=== PATIENT | male | born 1945 | race Caucasian/White ===

== ENCOUNTER 2017-03-20 08:38 | Emergency (ER) | payer MEDICARE, OTHER ==
[~2017-03-20] VITALS: Ht 190.5 cm; Wt 98.3 kg
[~2017-03-20 08:38] MED LIST: ACYC1CAP16 PO; AMLO5TAB22 PO; ASPI81TA45 PO; CLON.2 PO; IBUP600T26 PO; METO50TA PO; OMEP20.62 PO; PERC5TAB12 PO; ZOCO40TA PO; ZOFR4TAB3 SL
[2017-03-20] MEDS ORDERED: IOHEXOL 350 MG/ML 10 ML VIAL (for RAD DIAG) IVCONTRAST ONE (08:39)
[2017-03-20 08:50] VITALS: BP 136/84; PULSE 62; RESP 16; TEMP 98.1; O2SAT 97
[2017-03-20] MEDS ORDERED: OMEP20TA PO (08:50)
[2017-03-20] MEDS ORDERED: METO50TA PO (08:50)
[2017-03-20] MEDS ORDERED: AMLO5TAB2 PO (08:50)
[2017-03-20] MEDS ORDERED: SIMV40TA PO (08:50)
[2017-03-20] MEDS ORDERED: HYDR25TA5 PO (08:50)
[2017-03-20] MEDS ORDERED: MELO-1 PO (08:50)
[2017-03-20] MEDS ORDERED: CLON0.1T PO (08:50)
--- NOTE | 2017-03-20 09:06 | PD ---
HPI Chief Complaint: Abdominal Pain Time Seen by Provider: 08:56 Travel History International Travel<30 days: No Contact w/Intl Traveler<30days: No Traveled to known affect area: No History of Present Illness HPI This patient complains of abdominal pain. Location is right lower quadrant. Duration is 24 hours. Severity is moderate. No vomiting or diarrhea or fever. No alleviating factors. He denies abdominal surgeries. PFSH Past Medical History High Cholesterol: Yes Diminished Hearing: Yes GERD: Yes Hypertension: Yes Kidney Stones: Yes Tetanus Vaccination: < 5 Years Past Surgical History Other Surgery: Yes (hemorrhoid) Social History Alcohol Use: Yes (SOCIALLY) Tobacco Use: No Substance Use: No Allergies-Medications (Allergen,Severity, Reaction): Coded Allergies: No Known Allergies (Unverified , 03/20/17) Reported Meds & Prescriptions Reported Meds & Active Scripts Active Reported Omeprazole 20 Mg Tab 20 Mg PO DAILY Amlodipine (Amlodipine Besylate) 5 Mg Tab 5 Mg PO DAILY Clonidine (Clonidine HCl) 0.1 Mg Tab 0.2 Mg PO HS Metoprolol Tartrate 50 Mg Tab 50 Mg PO BID Simvastatin 40 Mg Tab 40 Mg PO HS Hydrochlorothiazide 25 Mg Tab 25 Mg PO DAILY Meloxicam 15 Mg Tab 15 Mg PO DAILY Review of Systems General / Constitutional: No: Fever Eyes: No: Visual changes HENT: No: Headaches Cardiovascular: No: Chest Pain or Discomfort Respiratory: No: Shortness of Breath Gastrointestinal: Positive: Abdominal Pain Genitourinary: No: Dysuria Musculoskeletal: No: Pain Skin: No Rash Neurologic: No: Weakness Psychiatric: No: Depression Endocrine: No: Polydipsia Hematologic/Lymphatic: No: Easy Bruising Physical Exam Narrative GENERAL: Well-nourished, well-developed patient in no apparent distress. SKIN: Focused skin assessment reveals no rash and nodules. Skin is Warm and dry. HEAD: Atraumatic. Normocephalic. EYES: Pupils equal and round. No scleral icterus. No injection or drainage. ENT: No nasal bleeding or discharge. Mucous membranes pink and moist. NECK: Trachea midline. No JVD. CARDIOVASCULAR: Regular rate and rhythm. No murmur appreciated. RESPIRATORY: No accessory muscle use. Clear to auscultation. Breath sounds equal bilaterally. GASTROINTESTINAL: Abdomen soft, right lower quadrant is tender without rebound or guarding, nondistended. Hepatic and splenic margins not palpable. No inguinal hernia noted MUSCULOSKELETAL: No obvious deformities. No clubbing. No cyanosis. No edema. NEUROLOGICAL: Awake and alert. No obvious cranial nerve deficits. Motor grossly within normal limits. Normal speech. PSYCHIATRIC: Appropriate mood and affect; insight and judgment normal. Data Data Last Documented VS Vital Signs Date Time Temp Pulse Resp B/P (MAP) Pulse Ox O2 Delivery O2 Flow Rate FiO2 03/20/17 09:16 94 03/20/17 09:00 16 03/20/17 08:50 98.1 62 136/84 (101) Orders Orders Urinalysis - C+S If Indicated (03/20/17 08:56) Basic Metabolic Panel (Bmp) (03/20/17 09:02) Complete Blood Count With Diff (03/20/17 09:02) Prothrombin Time / Inr (Pt) (03/20/17 09:02) Act Partial Throm Time (Ptt) (03/20/17 09:02) Ct Abd/Pel W Iv Contrast(Rout) (03/20/17 09:02) Iv Access Insert/Monitor (03/20/17 09:02) Ecg Monitoring (03/20/17 09:02) Oximetry (03/20/17 09:02) Sodium Chloride 0.9% Flush (Ns Flush) (03/20/17 09:15) Iohexol 350 Inj (Omnipaque 350 Inj) (03/20/17 08:39) Labs Laboratory Tests Test 03/20/17 08:50 03/20/17 09:10 Urine Collection Type VOIDED Urine Color YELLOW Urine Turbidity CLEAR Urine pH 6.5 Urine Specific [place] 1.017 Urine Protein NEG mg/dL Urine Glucose (UA) NEG mg/dL Urine Ketones NEG mg/dL Urine Occult Blood NEG Urine Nitrite NEG Urine Bilirubin NEG Urine Leukocyte Esterase TRACE Urine WBC 3-5 /hpf Urine Squamous Epithelial Cells 0-2 /hpf Urine Mucus FEW /lpf Microscopic Urinalysis Comment CULT NOT INDICATED White Blood Count 6.9 TH/MM3 Red Blood Count 4.51 MIL/MM3 Hemoglobin 14.4 GM/DL Hematocrit 42.4 % Mean Corpuscular Volume 94.1 FL Mean Corpuscular Hemoglobin 31.9 PG Mean Corpuscular Hemoglobin Concent 33.9 % Red Cell Distribution Width 12.1 % Platelet Count 241 TH/MM3 Mean Platelet Volume 8.4 FL Neutrophils (%) (Auto) 67.5 % Lymphocytes (%) (Auto) 17.0 % Monocytes (%) (Auto) 12.7 % Eosinophils (%) (Auto) 2.5 % Basophils (%) (Auto) 0.3 % Neutrophils # (Auto) 4.6 TH/MM3 Lymphocytes # (Auto) 1.2 TH/MM3 Monocytes # (Auto) 0.9 TH/MM3 Eosinophils # (Auto) 0.2 TH/MM3 Basophils # (Auto) 0.0 TH/MM3 CBC Comment DIFF FINAL Differential Comment Prothrombin Time 10.8 SEC Prothromb Time International Ratio 1.0 RATIO Activated Partial Thromboplast Time 26.7 SEC Blood Urea Nitrogen 18 MG/DL Creatinine 1.20 MG/DL Random Glucose 121 MG/DL Calcium Level 8.4 MG/DL Sodium Level 137 MEQ/L Potassium Level 3.3 MEQ/L Chloride Level 99 MEQ/L Carbon Dioxide Level 33.6 MEQ/L Anion Gap 4 MEQ/L Estimat Glomerular Filtration Rate 60 ML/MIN MDM Medical Decision Making Medical Screen Exam Complete: Yes Emergency Medical Condition: Yes Medical Record Reviewed: Yes Differential Diagnosis Appendicitis, colitis, ileus, hernia Narrative Course I have reviewed the patient's electronic medical record. Patient has history of multiple kidney stones and has a chronic right sided stone in his kidney IV placed CBC is normal metabolic profile shows normal renal function Coagulation studies are normal Urinalysis is clean CT of abdomen and pelvis with IV contrast shows a normal appendix. There are some nonobstructive stones that he knew about these are chronic and incidental. No emergent findings to require hospitalization or surgical evaluation. He does have some mild thickening of bowel loops but no inflammatory changes or obstruction. I wrote him some medication for pain and nausea to use if needed Stable for outpatient follow-up. He has a primary care appointment on Monday , 2 days from now Diagnosis Primary Impression: Abdominal pain Qualified Codes: R10.31 - Right lower quadrant pain Additional Instructions: The patient was advised to follow up with their physician and return if they worsen. The patient was warned about potential sedation for the medications they will receive on prescription. Med/Other Pt SpecificInfo: Prescription(s) given Scripts Ondansetron (Zofran) 4 Mg Tab 4 MG PO Q6HR Y for NAUSEA OR VOMITING, #12 TAB 0 Refills Prov: Adan Benítez MD 03/20/17 Tramadol (Tramadol) 50 Mg Tab 50 MG PO Q6H Y for PAIN, #20 TAB 0 Refills Prov: Adan Benítez MD 03/20/17 Disposition: 01 DISCHARGE HOME Condition: Stable Adan Benítez MD Mar 20, 2017 09:06
[2017-03-20 09:13] LABS: BLOOD, URINE NEG (NEG); GLUCOSE,URINE NEG (NEG); KETONE, URINE NEG (NEG); NITRITE,URINE NEG (NEG); PH, URINE 6.5 (5.0-8.5)
[2017-03-20] MEDS ORDERED: SODIUM CHLORIDE 0.9% FLUSH 10 ML FLUSH IV FLUSH PRN (09:15)
[2017-03-20 09:16] VITALS: O2SAT 94
[2017-03-20 09:27] LABS: AUTOMATED NEUTROPHIL # 4.6 TH/MM3 (1.8-7.7); BASOPHIL % 0.3 % (0.0-2.0); EOSINOPHIL # 0.2 TH/MM3 (0-0.4); EOSINOPHIL % 2.5 % (0.0-4.0); HEMATOCRIT 42.4 % (39.0-51.0); HEMO FLAGS DIFF FINAL; LYMPHOCYTE # 1.2 TH/MM3 (1.0-4.8); MEAN CELL VOLUME 94.1 FL (80.0-100.0); MEAN CORPUSCULAR HEMOGLOBIN 31.9 PG (27.0-34.0); MEAN CORPUSCULAR HGB CONC 33.9 % (32.0-36.0); MONO % 12.7 % (0.0-8.0); NEUT % 67.5 % (16.0-70.0); PLATELET COUNT 241 TH/MM3 (150-450); RED BLOOD COUNT 4.51 MIL/MM3 (4.50-5.90); RED CELL DISTRIBUTION WIDTH 12.1 % (11.6-17.2); WHITE BLOOD COUNT 6.9 TH/MM3 (4.0-11.0)
[2017-03-20 09:44] LABS: APTT (PATIENT) 26.7 SEC (24.3-30.1); PROTHROMBIN TIME - PATIENT 10.8 SEC (9.8-11.6)
[2017-03-20 09:46] LABS: METHOD OF COLLECTION VOIDED; URINE COLOR YELLOW (YELLW/STRAW)
[2017-03-20 09:49] LABS: COMMENT (UR) CULT NOT INDICATED; CULTURE IF INDICATED CULT NOT INDICATED; MUCUS URINE FEW /lpf (OCC); SQUAMOUS EPITHELIAL CELL URINE 0-2 /hpf (0-5)
[2017-03-20 10:14] LABS: BICARBONATE 33.6 MEQ/L (21.0-32.0); POTASSIUM 3.3 MEQ/L (3.5-5.1)
--- NOTE | 2017-03-20 10:56 | RADRPT ---
EXAM DATE/TIME: 03/20/2017 10:31 [facility] COMPARISON: No previous studies available for comparison. INDICATIONS : Right lower quadrant pain. Evaluate for appendicitis. IV CONTRAST: 90 cc Omnipaque 350 (iohexol) IV ORAL CONTRAST: No oral contrast ingested. RADIATION DOSE: 18.72 CTDIvol (mGy) MEDICAL HISTORY : Hypertension. Hypercholesterolemia. Gastroesophageal reflux disease. SURGICAL HISTORY : Orthopedic surgery. ENCOUNTER: Initial ACUITY: 2 days PAIN SCALE: 6/10 LOCATION: Right lower quadrant TECHNIQUE: Volumetric scanning of the abdomen and pelvis was performed. Using automated exposure control and ad justment of the mA and/or kV according to patient size, radiation dose was kept as low as reasonably achievable to obtain optimal diagnostic quality images. DICOM format image data is available electro nically for review and comparison. FINDINGS: LOWER LUNGS: The visualized lower lungs are clear. LIVER: Decreased attenuation without lesion. There is no dilation of the biliary tree. No calcified gallst ones. Benign-appearing hepatic low densities. SPLEEN: Normal size without lesion. PANCREAS: Within normal limits. KIDNEYS: Normal in size and shape. There is no mass, stone or hydronephrosis. Bilateral parapelvic renal cyst . Nonobstructing 3 mm calculus lower pole left kidney. Multiple calculi upper pole right kidney measu ring 3-8 mm. No ureteral calculi. ADRENAL GLANDS: Within normal limits. VASCULAR: There is no aortic aneurysm. BOWEL/MESENTERY: There is mild wall thickening involving some small bowel loops in the lower abdomen. Diverticulosis o f the colon. Trace pelvic free fluid. Normal appendix.. There is no free intraperitoneal air or flui d. ABDOMINAL WALL: Within normal limits. RETROPERITONEUM: There is no lymphadenopathy. BLADDER: No wall thickening or mass. REPRODUCTIVE: Within normal limits. INGUINAL: There is no lymphadenopathy or hernia. MUSCULOSKELETAL: Within normal limits for patient age. CONCLUSION: 1. Bilateral nonobstructing renal calculi more numerous in the right kidney. 2. Wall thickening involving some small bowel loops in the lower abdomen without inflammatory changes or obstruction. 3. Diverticulosis of the sigmoid colon without definite diverticulitis. 4. Trace pelvic free fluid. 5. Mild hepatic steatosis and hepatic low densities, likely benign. Sergey Santana MD on March 20, 2017 at 10:49 Board Certified Radiologist. This report was verified electronically.
[2017-03-20] MEDS ORDERED: TRAM50TA PO (11:19)
[2017-03-20] MEDS ORDERED: ZOFR4TAB PO (11:19)
[2017-03-20 11:22] VITALS: BP 134/75
== END 2017-03-20 11:37 | disposition home or self-care (01) ==
LOC: PHED 08:38
DX: R10.31 Right lower quadrant pain (principal); I10 Essential (primary) hypertension; Z87.442 Personal history of urinary calculi
CPT/HCPCS: 74177; 80048; 81001; 85025; 85610; 85730; 99285; Q9967

== ENCOUNTER 2017-05-21 12:09 | Emergency (ER) | payer OTHER ==
[~2017-05-21] VITALS: Ht 190.5 cm; Wt 106.0 kg
[~2017-05-21 12:09] MED LIST changes: -ACYC1CAP16 PO; +AMLO5TAB2 PO; -AMLO5TAB22 PO; -ASPI81TA45 PO; -CLON.2 PO; +CLON0.1T PO; +HYDR25TA5 PO; -IBUP600T26 PO; +MELO-1 PO; -OMEP20.62 PO; +OMEP20TA PO; -PERC5TAB12 PO; +SIMV40TA PO; +TRAM50TA PO; -ZOCO40TA PO; +ZOFR4TAB PO; -ZOFR4TAB3 SL
[2017-05-21 12:12] VITALS: BP 152/73; PULSE 68; RESP 18; TEMP 98.4; O2SAT 97
[2017-05-21] MEDS ORDERED: SODIUM CHLOR 0.9% 1000 ML INJ 1,000 ML IV SCH (12:40)
[2017-05-21] MEDS ORDERED: MORPHINE SULFATE 4 MG/ML INJ IV PUSH ONE (12:45)
[2017-05-21] MEDS ORDERED: SODIUM CHLORIDE 0.9% FLUSH 10 ML FLUSH IV FLUSH PRN (12:45)
--- NOTE | 2017-05-21 12:47 | PD ---
HPI Chief Complaint: Abdominal Pain Time Seen by Provider: 12:29 Travel History International Travel<30 days: No Contact w/Intl Traveler<30days: No Traveled to known affect area: No History of Present Illness HPI This is a 71-year-old male who presents to the emergency department with abdominal discomfort, constant for 4 days, moderate severity in the lower abdomen feeling like it wraps around all the way to his back, aching. He denies any associated fevers, chills, diarrhea or vomiting. He does say for the first 2 days he had some dysuria and urinary frequency. He says it feels similar to 35 years ago when he was diagnosed with a kidney infection. He has no history of abdominal surgeries. PFSH Past Medical History Cardiovascular Problems: Yes (AFIB) High Cholesterol: Yes Diminished Hearing: Yes GERD: Yes Hypertension: Yes Kidney Stones: Yes Past Surgical History Other Surgery: Yes (hemorrhoid) Social History Alcohol Use: Yes (SOCIALLY) Tobacco Use: No Substance Use: No Allergies-Medications (Allergen,Severity, Reaction): Coded Allergies: No Known Allergies (Unverified , 05/21/17) Reported Meds & Prescriptions Reported Meds & Active Scripts Active Reported Omeprazole 20 Mg Tab 20 Mg PO DAILY Amlodipine (Amlodipine Besylate) 5 Mg Tab 5 Mg PO DAILY Clonidine (Clonidine HCl) 0.1 Mg Tab 0.2 Mg PO HS Metoprolol Tartrate 50 Mg Tab 50 Mg PO BID Simvastatin 40 Mg Tab 40 Mg PO HS Hydrochlorothiazide 25 Mg Tab 25 Mg PO DAILY Meloxicam 15 Mg Tab 15 Mg PO DAILY Review of Systems Except as stated in HPI: all other systems reviewed are Neg Physical Exam Narrative GENERAL:Well appearing, no acute distress SKIN: Focused skin assessment warm and dry. HEAD: Atraumatic. Normocephalic. EYES: Pupils equal and round. No injection or drainage. ENT: Moist mucous membranes NECK: Trachea midline. CARDIOVASCULAR: Regular rate and rhythm. No murmur appreciated. RESPIRATORY: Clear to auscultation. Breath sounds equal bilaterally. GASTROINTESTINAL: Abdomen soft, tender to palpation in the lower abdomen diffusely with guarding. MUSCULOSKELETAL: No obvious deformities. NEUROLOGICAL: Awake and alert. No obvious cranial nerve deficits. Moving all extremities. PSYCHIATRIC: Appropriate mood and affect; insight and judgment normal. Data Data Last Documented VS Vital Signs Date Time Temp Pulse Resp B/P (MAP) Pulse Ox O2 Delivery O2 Flow Rate FiO2 10/22/17 14:15 71 20 168/95 (119) 94 05/21/17 12:12 98.4 Orders Orders Complete Blood Count With Diff (05/21/17 12:40) Comprehensive Metabolic Panel (05/21/17 12:40) Lipase (05/21/17 12:40) Lactic Acid (05/21/17 12:40) Urinalysis - C+S If Indicated (05/21/17 12:40) Ct Abd/Pel W Iv Contrast(Rout) (05/21/17 12:40) Iv Access Insert/Monitor (05/21/17 12:40) Ecg Monitoring (05/21/17 12:40) Oximetry (05/21/17 12:40) Morphine Inj (Morphine Inj) (05/21/17 12:45) Sodium Chlor 0.9% 1000 Ml Inj (Ns 1000 M (05/21/17 12:40) Sodium Chloride 0.9% Flush (Ns Flush) (05/21/17 12:45) Potassium Chloride Powder (Kcl Powder) (05/21/17 13:45) Iohexol 350 Inj (Omnipaque 350 Inj) (05/21/17 13:47) Labs Laboratory Tests Test 05/21/17 12:50 05/21/17 13:10 White Blood Count 6.3 TH/MM3 Red Blood Count 4.66 MIL/MM3 Hemoglobin 14.7 GM/DL Hematocrit 43.8 % Mean Corpuscular Volume 94.0 FL Mean Corpuscular Hemoglobin 31.6 PG Mean Corpuscular Hemoglobin Concent 33.7 % Red Cell Distribution Width 12.6 % Platelet Count 238 TH/MM3 Mean Platelet Volume 8.3 FL Neutrophils (%) (Auto) 68.9 % Lymphocytes (%) (Auto) 17.1 % Monocytes (%) (Auto) 10.8 % Eosinophils (%) (Auto) 2.8 % Basophils (%) (Auto) 0.4 % Neutrophils # (Auto) 4.3 TH/MM3 Lymphocytes # (Auto) 1.1 TH/MM3 Monocytes # (Auto) 0.7 TH/MM3 Eosinophils # (Auto) 0.2 TH/MM3 Basophils # (Auto) 0.0 TH/MM3 CBC Comment DIFF FINAL Differential Comment Blood Urea Nitrogen 20 MG/DL Creatinine 1.20 MG/DL Random Glucose 137 MG/DL Total Protein 7.0 GM/DL Albumin 3.7 GM/DL Calcium Level 9.0 MG/DL Alkaline Phosphatase 64 U/L Aspartate Amino Transf (AST/SGOT) 16 U/L Alanine Aminotransferase (ALT/SGPT) 41 U/L Total Bilirubin 0.6 MG/DL Sodium Level 138 MEQ/L Potassium Level 3.1 MEQ/L Chloride Level 100 MEQ/L Carbon Dioxide Level 33.6 MEQ/L Anion Gap 4 MEQ/L Estimat Glomerular Filtration Rate 60 ML/MIN Lactic Acid Level 1.6 mmol/L Lipase 95 U/L Urine Collection Type CLEAN CATCH Urine Color YELLOW Urine Turbidity CLEAR Urine pH 7.0 Urine Specific [place] 1.010 Urine Protein NEG mg/dL Urine Glucose (UA) NEG mg/dL Urine Ketones NEG mg/dL Urine Occult Blood NEG Urine Nitrite NEG Urine Bilirubin NEG Urine Leukocyte Esterase NEG Urine RBC 0-3 /hpf Urine WBC 0-2 /hpf Urine Squamous Epithelial Cells 0-5 /hpf Microscopic Urinalysis Comment CULT NOT INDICATED Urine Collection Time 13:10 [facility] Medical Decision Making Medical Screen Exam Complete: Yes Emergency Medical Condition: Yes Interpretation(s) afebrile, no tachycardia, hypertension no leukocytosis mild hypokalemia lactic acid 1.6 lipase 95 Urinalysis is negative for infection Last 24 hours Impressions Abdomen/Pelvis CT 05/21/17 1240 Signed Impressions: Service Date/Time: Sunday, May 21, 2017 13:42 - CONCLUSION: 1. No acute abnormality. 2. Hepatic steatosis. 3. Bilateral nonobstructing renal calculi. 4. Bilateral renal cysts including peripelvic cysts. Charlie Dumont Jr., MD Differential Diagnosis Colitis, urinary tract infection, pyelonephritis, appendicitis, nephrolithiasis Narrative Course This is a 71-year-old male who presents to the emergency department with 4 days of lower abdominal pain. He is quite tender on exam. He is placed in a monitor and an IV was established. Labs are all reassuring including a normal lactic acid. CT abdomen and pelvis demonstrates no acute pathology. I'm not sure what's causing the patient's abdominal pain. We had along conversation and I asked him to try to expedite his colonoscopy they think this is the next step in his evaluation. Patient did seem frustrated and I had to explain to him the limitations of the emergency department. He has a follow-up with his primary doctor tomorrow morning. Diagnosis Primary Impression: Lower abdominal pain Patient Instructions: General Instructions Additional Instructions: If you develop severe or worsening abdominal pain, fever>100.4, persistent vomiting or inability to eat or drink return to the emergency department immediately. Follow up with your primary care physician in 1-2 days for a check-up. Med/Other Pt SpecificInfo: Prescription(s) given Scripts Dicyclomine (Bentyl) 10 Mg Cap 10 MG PO TID Y for Bowel Management, #15 CAP 0 Refills Prov: Ruma Edmond MD 05/21/17 Disposition: 01 DISCHARGE HOME Condition: Stable Ruma Edmond MD May 21, 2017 12:47
[2017-05-21 12:53] VITALS: O2SAT 96
[2017-05-21 12:59] VITALS: BP 145/87; PULSE 62; RESP 20; O2SAT 94
[2017-05-21 13:02] LABS: AUTOMATED NEUTROPHIL # 4.3 TH/MM3 (1.8-7.7); BASOPHIL % 0.4 % (0.0-2.0); EOSINOPHIL # 0.2 TH/MM3 (0-0.4); EOSINOPHIL % 2.8 % (0.0-4.0); HEMATOCRIT 43.8 % (39.0-51.0); HEMO FLAGS DIFF FINAL; LYMPH % 17.1 % (9.0-44.0); LYMPHOCYTE # 1.1 TH/MM3 (1.0-4.8); MEAN CORPUSCULAR HEMOGLOBIN 31.6 PG (27.0-34.0); MEAN CORPUSCULAR HGB CONC 33.7 % (32.0-36.0); MONO % 10.8 % (0.0-8.0); NEUT % 68.9 % (16.0-70.0); PLATELET COUNT 238 TH/MM3 (150-450); RED BLOOD COUNT 4.66 MIL/MM3 (4.50-5.90); RED CELL DISTRIBUTION WIDTH 12.6 % (11.6-17.2); WHITE BLOOD COUNT 6.3 TH/MM3 (4.0-11.0)
[2017-05-21 13:10] LABS: CHLORIDE 100 MEQ/L (98-107); POTASSIUM 3.1 MEQ/L (3.5-5.1); SODIUM (NA) 138 MEQ/L (136-145)
[2017-05-21 13:14] LABS: ANION GAP 4 MEQ/L (5-15); BICARBONATE 33.6 MEQ/L (21.0-32.0); BLOOD UREA NITROGEN 20 MG/DL (7-18)
[2017-05-21 13:17] LABS: ALT (GPT) 41 U/L (12-78); AST (GOT) 16 U/L (15-37); GLOMERULAR FILTRATION RATE 60 ML/MIN (>89)
[2017-05-21 13:19] LABS: TOTAL BILIRUBIN ADULT 0.6 MG/DL (0.2-1.0)
[2017-05-21 13:20] LABS: ALKALINE PHOSPHATASE 64 U/L (45-117)
[2017-05-21 13:22] LABS: BLOOD, URINE NEG (NEG); GLUCOSE,URINE NEG (NEG); KETONE, URINE NEG (NEG); NITRITE,URINE NEG (NEG)
[2017-05-21 13:31] LABS: METHOD OF COLLECTION CLEAN CATCH
[2017-05-21 13:32] LABS: COMMENT (UR) CULT NOT INDICATED; CULTURE IF INDICATED CULT NOT INDICATED; RBC, URINE 0-3 /hpf (0-3); SQUAMOUS EPITHELIAL CELL URINE 0-5 /hpf (0-5); URINE COLOR YELLOW (YELLW/STRAW); WBC, URINE 0-2 /hpf (0-5)
[2017-05-21] MEDS ORDERED: POTASSIUM CHLORIDE 20 MEQ PWD PACKET PO ONE (13:45)
[2017-05-21] MEDS ORDERED: IOHEXOL 350 MG/ML 10 ML VIAL (for RAD DIAG) IVCONTRAST ONE (13:47)
--- NOTE | 2017-05-21 14:04 | RADRPT ---
EXAM DATE/TIME: 05/21/2017 13:42 [facility] COMPARISON: CT ABDOMEN & PELVIS W CONTRAST, March 20, 2017, 10:31. INDICATIONS : Diffuse abdominal pain radiating to back, with painful urination. IV CONTRAST: 95 cc Omnipaque 350 (iohexol) IV ORAL CONTRAST: No oral contrast ingested. RADIATION DOSE: 18.28 CTDIvol (mGy) MEDICAL HISTORY : Hypertension. Gastroesophageal reflux disease. Renal calculi. SURGICAL HISTORY : Orthopedic surgery. ENCOUNTER: Initial ACUITY: 3 days PAIN SCALE: 6/10 LOCATION: Bilateral abdomen TECHNIQUE: Volumetric scanning of the abdomen and pelvis was performed. Using automated exposure control and ad justment of the mA and/or kV according to patient size, radiation dose was kept as low as reasonably achievable to obtain optimal diagnostic quality images. DICOM format image data is available electro nically for review and comparison. FINDINGS: LOWER LUNGS: The visualized lower lungs are clear. LIVER: Homogeneous density. There is a 1.5 cm cyst within the left lobe. This is stable. Hounsfield units ar e patent. The liver is diffusely low in attenuation. There is no dilation of the biliary tree. No c alcified gallstones. SPLEEN: Normal size without lesion. Multiple granulomatous calcifications. PANCREAS: Within normal limits. KIDNEYS: Bilateral peripelvic and cortical renal cysts. There are bilateral renal calculi. This is more abunda nt on the right. There is a multilobulated stone occupying the upper pole. Renal pelvis is without st ones. A 3 mm stone seen involving the lower pole of the left kidney. No hydronephrosis or hydroureter . No ureteral stones. ADRENAL GLANDS: Within normal limits. VASCULAR: There is no aortic aneurysm. BOWEL/MESENTERY: The stomach, small bowel, and colon demonstrate no acute abnormality. There is no free intraperitone al air or fluid. ABDOMINAL WALL: Within normal limits. RETROPERITONEUM: There is no lymphadenopathy. BLADDER: No wall thickening or mass. REPRODUCTIVE: Within normal limits. INGUINAL: There is no lymphadenopathy or hernia. MUSCULOSKELETAL: Within normal limits for patient age. CONCLUSION: 1. No acute abnormality. 2. Hepatic steatosis. 3. Bilateral nonobstructing renal calculi. 4. Bilateral renal cysts including peripelvic cysts. Charlie Dumont Jr., MD on May 21, 2017 at 13:59 Board Certified Radiologist. This report was verified electronically.
[2017-05-21 14:15] VITALS: BP 168/95; PULSE 71; RESP 20; O2SAT 94
[2017-05-21] MEDS ORDERED: DICY10 PO (14:28)
== END 2017-05-21 14:39 | disposition home or self-care (01) ==
LOC: PHED 12:09
DX: R10.30 Lower abdominal pain, unspecified (principal)
CPT/HCPCS: 74177; 80053; 81001; 83605; 83690; 85025; 96361; 96374; 99285; J2270; J7030; Q9967

== ENCOUNTER 2017-08-17 13:36 | Observation (INO) | payer OTHER ==
[~2017-08-17] VITALS: Ht 190.5 cm; Wt 99.9 kg
[2017-08-17] VITALS (7 sets, daily range): BP systolic 112–138; BP diastolic 68–89; PULSE 44–58; RESP 12–18; TEMP 96.7–99; O2SAT 93–98
[~2017-08-17 13:36] MED LIST changes: +DICY10 PO; -MELO-1 PO; +MELO15TA20 PO; -OMEP20TA PO; +OMEP20TA93 PO; -TRAM50TA PO; -ZOFR4TAB PO
--- NOTE | 2017-08-17 14:07 | PD ---
HPI Chief Complaint: Chest Pain Time Seen by Provider: 13:45 Travel History International Travel<30 days: No Contact w/Intl Traveler<30days: No Traveled to known affect area: No History of Present Illness HPI This 72-year-old male having some slight left-sided chest pain since this morning. He has a history of atrial fibrillation 4 in the past. He does see a vessel operator on a regular basis. He has had 2 cardiac caths in the past the last murmurs about 10 years ago. He has currently on Toprol on clonidine. He says he was not monitoring his heart at home in a slow irregular in he thought he was not back in atrial fibrillation. He has been having a left lateral chest pain which has been present since around 945. He says he feels a little bit unsteady when he walks. There has not been any recent change in his medication. He is on Toprol 50 mg twice a day PFSH Past Medical History Cardiovascular Problems: Yes High Cholesterol: Yes Diminished Hearing: Yes GERD: Yes Hypertension: Yes Kidney Stones: Yes Influenza Vaccination: Yes Past Surgical History Other Surgery: Yes (hemorrhoid) Social History Alcohol Use: Yes (SOCIALLY) Tobacco Use: No Substance Use: No Allergies-Medications (Allergen,Severity, Reaction): Coded Allergies: No Known Allergies (Unverified Adverse Reaction, Unknown, 08/17/17) Reported Meds & Prescriptions Reported Meds & Active Scripts Active Reported Omeprazole 20 Mg Tab 20 Mg PO DAILY Amlodipine (Amlodipine Besylate) 5 Mg Tab 5 Mg PO DAILY Clonidine (Clonidine HCl) 0.1 Mg Tab 0.1 Mg PO HS Metoprolol Tartrate 50 Mg Tab 50 Mg PO BID Simvastatin 40 Mg Tab 40 Mg PO HS Hydrochlorothiazide 25 Mg Tab 25 Mg PO DAILY Meloxicam 15 Mg Tab 15 Mg PO DAILY Physical Exam Narrative GENERAL: Well-developed male. Heart rate as about 50 SKIN: Focused skin assessment warm/dry. HEAD: Atraumatic. Normocephalic. EYES: Pupils equal and round. No scleral icterus. No injection or drainage. ENT: No nasal bleeding or discharge. Mucous membranes pink and moist. NECK: Trachea midline. No JVD. CARDIOVASCULAR: Irregular rate and rhythm. No murmur appreciated. RESPIRATORY: No accessory muscle use. Clear to auscultation. Breath sounds equal bilaterally. GASTROINTESTINAL: Abdomen soft, non-tender, nondistended. Hepatic and splenic margins not palpable. MUSCULOSKELETAL: No obvious deformities. No clubbing. No cyanosis. No edema. NEUROLOGICAL: Awake and alert. No obvious cranial nerve deficits. Motor grossly within normal limits. Normal speech. PSYCHIATRIC: Appropriate mood and affect; insight and judgment normal. Data Data Last Documented VS Vital Signs Date Time Temp Pulse Resp B/P (MAP) Pulse Ox O2 Delivery O2 Flow Rate FiO2 08/17/17 14:31 44 18 115/75 (88) 112/68 (83) 08/17/17 14:10 98 Room Air 08/17/17 13:39 97.6 Orders Orders Electrocardiogram (08/17/17 14:05) Basic Metabolic Panel (Bmp) (08/17/17 14:05) Complete Blood Count With Diff (08/17/17 14:05) Magnesium (Mg) (08/17/17 14:05) Prothrombin Time / Inr (Pt) (08/17/17 14:05) Act Partial Throm Time (Ptt) (08/17/17 14:05) Troponin I (08/17/17 14:05) Chest, Single Ap (08/17/17 14:05) Ecg Monitoring (08/17/17 14:05) Bilateral Bp Monitoring (08/17/17 14:05) Iv Access Insert/Monitor (08/17/17 14:05) Oximetry (08/17/17 14:05) Oxygen Administration (08/17/17 14:05) Sodium Chloride 0.9% Flush (Ns Flush) (08/17/17 14:15) Potassium Chloride (Kcl) (08/17/17 15:00) Labs Laboratory Tests Test 08/17/17 14:12 White Blood Count 5.9 TH/MM3 Red Blood Count 4.60 MIL/MM3 Hemoglobin 13.8 GM/DL Hematocrit 43.2 % Mean Corpuscular Volume 93.8 FL Mean Corpuscular Hemoglobin 30.1 PG Mean Corpuscular Hemoglobin Concent 32.1 % Red Cell Distribution Width 12.8 % Platelet Count 245 TH/MM3 Mean Platelet Volume 8.2 FL Neutrophils (%) (Auto) 63.7 % Lymphocytes (%) (Auto) 20.5 % Monocytes (%) (Auto) 11.9 % Eosinophils (%) (Auto) 3.2 % Basophils (%) (Auto) 0.7 % Neutrophils # (Auto) 3.8 TH/MM3 Lymphocytes # (Auto) 1.2 TH/MM3 Monocytes # (Auto) 0.7 TH/MM3 Eosinophils # (Auto) 0.2 TH/MM3 Basophils # (Auto) 0.0 TH/MM3 CBC Comment DIFF FINAL Differential Comment Prothrombin Time 10.7 SEC Prothromb Time International Ratio 1.1 RATIO Activated Partial Thromboplast Time 25.1 SEC Blood Urea Nitrogen 17 MG/DL Creatinine 1.10 MG/DL Random Glucose 115 MG/DL Calcium Level 8.8 MG/DL Magnesium Level 2.1 MG/DL Sodium Level 138 MEQ/L Potassium Level 3.4 MEQ/L Chloride Level 101 MEQ/L Carbon Dioxide Level 32.2 MEQ/L Anion Gap 5 MEQ/L Estimat Glomerular Filtration Rate 66 ML/MIN Troponin I LESS THAN 0.02 NG/ML MDM Medical Decision Making Medical Screen Exam Complete: Yes Emergency Medical Condition: Yes Medical Record Reviewed: Yes Differential Diagnosis Differential includes coronary artery disease, dysrhythmia, electrolyte imbalance Narrative Course EKG shows atrial fibrillation at a rate of 50. There are prominent U waves. Troponins normal. His potassium as 3.4. I discussed the case with his vessel operator Dr. Elise. He recommends that we initiate Eliquis 5 mg twice a day. Decrease metoprolol to 25 mg twice daily Diagnosis Primary Impression: Chest pain Qualified Codes: R07.9 - Chest pain, unspecified Additional Impression: Atrial fibrillation Admitting Information Admitting Physician Requests: Observation Bakari Dow MD Aug 17, 2017 14:07
[2017-08-17] MEDS ORDERED: SODIUM CHLORIDE 0.9% FLUSH 10 ML FLUSH IVF PRN (14:15)
[2017-08-17 14:20] LABS: AUTOMATED NEUTROPHIL # 3.8 TH/MM3 (1.8-7.7); BASOPHIL % 0.7 % (0.0-2.0); EOSINOPHIL # 0.2 TH/MM3 (0-0.4); EOSINOPHIL % 3.2 % (0.0-4.0); HEMATOCRIT 43.2 % (39.0-51.0); HEMOGLOBIN 13.8 GM/DL (13.0-17.0); LYMPH % 20.5 % (9.0-44.0); LYMPHOCYTE # 1.2 TH/MM3 (1.0-4.8); MEAN CELL VOLUME 93.8 FL (80.0-100.0); MEAN CORPUSCULAR HEMOGLOBIN 30.1 PG (27.0-34.0); MEAN CORPUSCULAR HGB CONC 32.1 % (32.0-36.0); MEAN PLATELET VOLUME 8.2 FL (7.0-11.0); MONO % 11.9 % (0.0-8.0); MONOCYTE # 0.7 TH/MM3 (0-0.9); NEUT % 63.7 % (16.0-70.0); PLATELET COUNT 245 TH/MM3 (150-450); RED CELL DISTRIBUTION WIDTH 12.8 % (11.6-17.2); WHITE BLOOD COUNT 5.9 TH/MM3 (4.0-11.0)
[2017-08-17 14:29] LABS: CHLORIDE 101 MEQ/L (98-107); SODIUM (NA) 138 MEQ/L (136-145)
[2017-08-17 14:32] LABS: BICARBONATE 32.2 MEQ/L (21.0-32.0); CALCIUM 8.8 MG/DL (8.5-10.1); GLUCOSE,RANDOM 115 MG/DL (74-106); MAGNESIUM 2.1 MG/DL (1.5-2.5)
[2017-08-17 14:33] LABS: BLOOD UREA NITROGEN 17 MG/DL (7-18)
[2017-08-17 14:34] LABS: INTERNATIONAL NORMALIZED RATIO 1.1 RATIO; PROTHROMBIN TIME - PATIENT 10.7 SEC (9.8-11.6)
[2017-08-17 14:36] LABS: GLOMERULAR FILTRATION RATE 66 ML/MIN (>89)
--- NOTE | 2017-08-17 14:39 | RADRPT ---
EXAM DATE/TIME: 08/17/2017 14:19 [facility] COMPARISON: No previous studies available for comparison. INDICATIONS : Chest pain since this morning. MEDICAL HISTORY : Hypertension. Hypercholesterolemia. Gastroesophageal reflux disease. SURGICAL HISTORY : None. ENCOUNTER: Initial ACUITY: 1 day PAIN SCORE: 2/10 LOCATION: Bilateral chest FINDINGS: A single view of the chest demonstrates the lungs to be symmetrically aerated without evidence of mas s, infiltrate or effusion. The cardiomediastinal contours are unremarkable. Osseous structures are intact. CONCLUSION: Normal examination. Shawn Cotton MD on August 17, 2017 at 14:36 Board Certified Radiologist. This report was verified electronically.
[2017-08-17 14:41] LABS: TROPONIN I LESS THAN 0.02 NG/ML (0.02-0.05)
[2017-08-17] MEDS ORDERED: ASPIRIN 325 MG TAB PO ONE (15:00)
[2017-08-17] MEDS ORDERED: POTASSIUM CHLORIDE 20 MEQ CONTROLLED RELEASE TAB PO ONE (15:00)
[2017-08-17] MEDS ORDERED: APIXABAN 5 MG TABLET PO ONE (15:15)
[2017-08-17] MEDS ORDERED: NALOXONE HCL 0.4 MG/ML AMP IV PUSH PRN (15:15)
[2017-08-17] MEDS ORDERED: ACETAMINOPHEN 325 MG TAB PO PRN (15:15)
[2017-08-17] MEDS ORDERED: SODIUM CHLORIDE 0.9% FLUSH 10 ML FLUSH IV FLUSH PRN (15:15)
--- NOTE | 2017-08-17 16:12 | HHI.HP ---
[facility] Primary Care Physician Brenden Vaz MD Admission Diagnosis ATRIAL FIBRILLATION, BRADYCARDIA, CHEST PAIN Diagnoses: Chief Complaint: left side chest pain Travel History International Travel<30 Days: No Contact w/Intl Traveler <30 Da: No Traveled to Known Affected Are: No History of Present Illness This is a 72 year old male with paroxysmal afib for 8 years. HE has felt poorly the last few days and today developed left side chest pain for a few hours. His pain was severe but without nausea or diaphoresis. He has come to the er for further eval. HE is in slow AFIB on telemetry and it is persistent. His chest pain has resolved spontaneously. His boat carpenter mechanic was notified and he has been recommended to be observed overnight. Review of Systems Constitutional: DENIES: Diaphoretic episodes, Fatigue, Fever, Weight gain, Weight loss, Chills, Dizziness, Change in appetite, Night Sweats Endocrine: DENIES: Heat/cold intolerance, Polydipsia, Polyuria, Polyphagia Eyes: DENIES: Blurred vision, Diplopia, Eye inflammation, Eye pain, Vision loss , Photosensitivity, Double Vision Ears, nose, mouth, throat: DENIES: Tinnitus, Hearing loss, Vertigo, Nasal discharge, Oral lesions, Throat pain, Hoarseness, Ear Pain, Running Nose, Epistaxis, Sinus Pain, Toothache, Odynophagia Respiratory: DENIES: Apneas, Cough, Snoring, Wheezing, Hemoptysis, Sputum production, Shortness of breath Cardiovascular: COMPLAINS OF: Chest pain, DENIES: Palpitations, Syncope, Dyspnea on Exertion, PND, Lower Extremity Edema, Orthopnea, Claudication Gastrointestinal: DENIES: Abdominal pain, Black stools, Bloody stools, Constipation, Diarrhea, Nausea, Vomiting, Difficulty Swallowing, Anorexia Genitourinary: DENIES: Sexual dysfunction, Urinary frequency, Urinary incontinence, Urgency, Hematuria, Dysuria, Nocturia, Penile Discharge, Testicular Pain, Testicular Swelling Musculoskeletal: DENIES: Joint pain, Muscle aches, Stiffness, Joint Swelling, Back pain, Neck pain Integumentary: DENIES: Abnormal pigmentation, Nail changes, Pruritus, Rash Hematologic/lymphatic: DENIES: Bruising, Lymphadenopathy Immunologic/allergic: DENIES: Eczema, Urticaria Neurologic: DENIES: Abnormal gait, Headache, Localized weakness, Paresthesias, Seizures, Speech Problems, Tremor, Poor Balance Psychiatric: DENIES: Anxiety, Confusion, Mood changes, Depression, Hallucinations, Agitation, Suicidal Ideation, Homicidal Ideation, Delusions Except as stated in HPI: all other systems reviewed are Neg Past Family Social History Past Medical History afib htn back pain Past Surgical History multiple back surgery hemorrhoid Reported Medications reviewed in the emr Allergies: Coded Allergies: No Known Allergies (Unverified Allergy, Unknown, 08/17/17) Active Ordered Medications Reviewed in the emr Family History mom dementia father AAA at 88 Social History Quit Etoh 50 yrs ago ETOH frequently Physical Exam Vital Signs Vital Signs Date Time Temp Pulse Resp B/P (MAP) Pulse Ox O2 Delivery O2 Flow Rate FiO2 08/17/17 15:55 08/17/17 15:04 48 18 131/89 (103) 96 Room Air 08/17/17 14:31 44 18 115/75 (88) 112/68 (83) 08/17/17 14:10 98 Room Air 08/17/17 14:10 98 Room Air 08/17/17 13:41 96 Room Air 08/17/17 13:39 97.6 56 18 138/83 (101) 96 Physical Exam GENERAL: This is a well-nourished, well-developed patient, in no apparent distress. SKIN: No rashes, ecchymoses or lesions. Cool and dry. HEAD: Atraumatic. Normocephalic. No temporal or scalp tenderness. EYES: Pupils equal round and reactive. Extraocular motions intact. No scleral icterus. No injection or drainage. ENT: Nose without bleeding, purulent drainage or septal hematoma. Throat without erythema, tonsillar hypertrophy or exudate. Uvula midline. Airway patent. NECK: Trachea midline. No JVD or lymphadenopathy. Supple, nontender, no meningeal signs. CARDIOVASCULAR: brenda afib without murmurs, gallops, or rubs. RESPIRATORY: Clear to auscultation. Breath sounds equal bilaterally. No wheezes , rales, or rhonchi. GASTROINTESTINAL: Abdomen soft, non-tender, nondistended. No hepato-splenomegaly , or palpable masses. No guarding. MUSCULOSKELETAL: Extremities without clubbing, cyanosis, or edema. No joint tenderness, effusion, or edema noted. No calf tenderness. Negative Homans sign bilaterally. NEUROLOGICAL: Awake and alert. Cranial nerves II through XII intact. Motor and sensory grossly within normal limits. Five out of 5 muscle strength in all muscle groups. Normal speech. Laboratory Laboratory Tests Test 08/17/17 14:12 White Blood Count 5.9 Red Blood Count 4.60 Hemoglobin 13.8 Hematocrit 43.2 Mean Corpuscular Volume 93.8 Mean Corpuscular Hemoglobin 30.1 Mean Corpuscular Hemoglobin Concent 32.1 Red Cell Distribution Width 12.8 Platelet Count 245 Mean Platelet Volume 8.2 Neutrophils (%) (Auto) 63.7 Lymphocytes (%) (Auto) 20.5 Monocytes (%) (Auto) 11.9 Eosinophils (%) (Auto) 3.2 Basophils (%) (Auto) 0.7 Neutrophils # (Auto) 3.8 Lymphocytes # (Auto) 1.2 Monocytes # (Auto) 0.7 Eosinophils # (Auto) 0.2 Basophils # (Auto) 0.0 CBC Comment DIFF FINAL Differential Comment Prothrombin Time 10.7 Prothromb Time International Ratio 1.1 Activated Partial Thromboplast Time 25.1 Blood Urea Nitrogen 17 Creatinine 1.10 Random Glucose 115 Calcium Level 8.8 Magnesium Level 2.1 Sodium Level 138 Potassium Level 3.4 Chloride Level 101 Carbon Dioxide Level 32.2 Anion Gap 5 Estimat Glomerular Filtration Rate 66 Troponin I LESS THAN 0.02 Result Diagram: 08/17/17 1412 08/17/17 1412 Imaging Last Impressions Chest X-Ray 08/17/17 1405 Signed Impressions: Service Date/Time: July 14:19 - CONCLUSION: Normal examination. MD Roslyn Amaro VTE Risk Assessment Caprini VTE Risk Assessment: No/Low Risk (score <= 1) Caprini Risk Assessment Model Point Value = 1 Point Value = 2 Point Value = 3 Point Value = 5 Age 41-60 Minor surgery BMI > 25 kg/m2 Swollen legs Varicose veins or History of unexplained or recurrent spontaneous Oral contraceptives or hormone replacement Sepsis (< 1 month) Serious lung disease, including pneumonia (< 1 month) Abnormal pulmonary function Acute myocardial infarction Congestive heart failure (< 1 month) History of inflammatory bowel disease Medical patient at bed rest Age 61-74 Arthroscopic surgery Major open surgery (> 45 min) Laparoscopic surgery (> 45 min) Malignancy Confined to bed (> 72 hours) Immobilizing plaster cast Central venous access Age >= 75 History of VTE Family history of VTE Factor V Leiden Prothrombin [id number] Lupus anticoagulant Anticardiolipin antibodies Elevated serum homocysteine Heparin-induced thrombocytopenia Other congenital or acquired thrombophilia Stroke (< 1 month) Elective arthroplasty Hip, pelvis, or leg fracture Acute spinal cord injury (< 1 month) Prophylaxis Regimen Total Risk Factor Score Risk Level Prophylaxis Regimen 0-1 Low Early ambulation 2 Moderate Order ONE of the following: *Sequential Compression Device (SCD) *Heparin 5000 units SQ BID 3-4 Higher Order ONE of the following medications: *Heparin 5000 units SQ TID *Enoxaparin/Lovenox 40 mg SQ daily (WT < 150 kg, CrCl > 30 mL/min) *Enoxaparin/Lovenox 30 mg SQ daily (WT < 150 kg, CrCl > 10-29 mL/min) *Enoxaparin/Lovenox 30 mg SQ BID (WT < 150 kg, CrCl > 30 mL/min) AND/OR *Sequential Compression Device (SCD) 5 or more Highest Order ONE of the following medications: *Heparin 5000 units SQ TID (Preferred with Epidurals) *Enoxaparin/Lovenox 40 mg SQ daily (WT < 150 kg, CrCl > 30 mL/min) *Enoxaparin/Lovenox 30 mg SQ daily (WT < 150 kg, CrCl > 10-29 mL/min) *Enoxaparin/Lovenox 30 mg SQ BID (WT < 150 kg, CrCl > 30 mL/min) AND *Sequential Compression Device (SCD) Assessment and Plan Problem List: (1) HTN (hypertension) ICD Code: I10 - Essential (primary) hypertension Plan: controlled on home meds which we will continue (2) Atrial fibrillation ICD Code: I48.91 - Unspecified atrial fibrillation Status: Acute Plan: Add eliquis Rage slow, follow on telemetry and correct electrolytes (3) Chest pain ICD Code: R07.9 - Chest pain, unspecified Status: Acute Plan: Etiology unclear Trops treding ST in am Telemetry Eliquis,simvistatin, metoprolol, aspirin nitro prn Discussed Condition With pending st , likely dc in am Problem Qualifiers (1) Chest pain: Qualified Codes: R07.9 - Chest pain, unspecified Shaina Leblanc MD Aug 17, 2017 16:12
[2017-08-17] MEDS ORDERED: NITROGLYCERIN 0.4 MG SL 25 TABS/BTL SL PRN (16:15)
--- NOTE | 2017-08-17 18:45 | PD.CONS ---
HPI Consult Requested By Primary Care Physician Brenden Vaz MD History of Present Illness 72 year old male with pmhx significant for HTN, HLD, paroxysmal afib followed by Dr. Navarro consulted for "chest pain" and afib. He reports being in his usual state of health when he took his vitals and found to have slow heart rate for which he got concern call the [facility] office and it was recommended he presented to the ER. In the ER he was found to be in slow afib. Besides the HR he also reports very mild left sided chest pain, sharp , nonradiating and not associated with exertion. No nausea, diaphoresis, PND, leg edema, palpitations or syncope. EKG Afib without ST changes. Chest pain resolved spontaneously. Review of Systems Consitutional: DENIES: Fatigue, Fever, Chills, Weight gain, Weight loss Eyes: DENIES: Amaurosis Fugax, Change in vision HEENT: DENIES: Lightheadedness, Change in hearing Respiratory: DENIES: See HPI, Cough, Snoring, Shortness of breath, Wheezing, Sputum production Cardiovascular: COMPLAINS OF: See HPI, DENIES: Chest pain, Palpitations, Syncope, Tachycardia Gastrointestinal: DENIES: Nausea, Vomiting, Change in bowel habits, Reflux, Bloody stools, Melena Genitourinary: DENIES: Urinary incontinence, Difficulty voiding Integumentary: DENIES: Rash Neurologic: DENIES: Tingling or numbness, Memory problems, Poor Balance, Stroke symptoms Musculoskeletal: DENIES: Joint pain, Muscle pain, Limited range of motion, Back pain Psychiatric: DENIES: Anxiety, Depression, Sleep disturbances Hematologic: DENIES: Bruising tendencies, Bleeding tendencies Endocrine: DENIES: Weight gain, Weight loss, Thyroid disease Past Family Social History Allergies: Coded Allergies: No Known Allergies (Unverified Allergy, Unknown, 08/17/17) Past Medical History afib htn back pain Past Surgical History multiple back surgery hemorrhoid Reported Medications Reported Meds & Active Scripts Active Reported Omeprazole 20 Mg Tab 20 Mg PO DAILY Amlodipine (Amlodipine Besylate) 5 Mg Tab 5 Mg PO DAILY Clonidine (Clonidine HCl) 0.1 Mg Tab 0.1 Mg PO HS Metoprolol Tartrate 50 Mg Tab 50 Mg PO BID Simvastatin 40 Mg Tab 40 Mg PO HS Hydrochlorothiazide 25 Mg Tab 25 Mg PO DAILY Meloxicam 15 Mg Tab 15 Mg PO DAILY Active Ordered Medications Current Medications Medications (Trade) Dose Ordered Sig/Hang Route Start Time Stop Time Status Last Admin (NS Flush) 2 ml UNSCH PRN IVF 08/17/17 14:15 (NS Flush) 2 ml UNSCH PRN IV FLUSH 08/17/17 15:15 (NS Flush) 2 ml BID IV FLUSH 08/17/17 21:00 (Tylenol) 650 mg Q4H PRN PO 08/17/17 15:15 (Narcan Inj) 0.4 mg UNSCH PRN IV PUSH 08/17/17 15:15 (Senokot) 17.2 mg Q12HR PRN PO 08/17/17 21:00 (Norvasc) 5 mg DAILY PO 08/18/17 09:00 (Catapres) 0.1 mg HS PO 08/17/17 21:00 (Hydrodiuril) 25 mg DAILY PO 08/18/17 09:00 (Mobic) 15 mg DAILY PO 08/18/17 09:00 (Protonix) 20 mg DAILY PO 08/18/17 09:00 (Pravachol) 80 mg HS PO 08/17/17 21:00 (Aspirin) 325 mg DAILY PO 08/19/17 09:00 (Nitrostat Sl) 0.4 mg Q5M PRN SL 08/17/17 16:15 (Eliquis) 5 mg BID PO 08/18/17 09:00 Family History mom dementia father AAA at 88 Social History Quit Etoh 50 yrs ago ETOH frequently Physical Exam Vital Signs Vital Signs Date Time Temp Pulse Resp B/P (MAP) Pulse Ox O2 Delivery O2 Flow Rate FiO2 08/17/17 17:04 46 08/17/17 16:00 99.0 50 12 129/80 (96) 97 08/17/17 15:55 08/17/17 15:04 48 18 131/89 (103) 96 Room Air 08/17/17 14:31 44 18 115/75 (88) 112/68 (83) 08/17/17 14:10 98 Room Air 08/17/17 14:10 98 Room Air 08/17/17 13:41 96 Room Air 08/17/17 13:39 97.6 56 18 138/83 (101) 96 Physical Exam GENERAL: Well-nourished, well-developed patient. SKIN: Warm and dry. HEAD: Normocephalic. EYES: No scleral icterus. No injection or drainage. NECK: Supple, trachea midline. No JVD or lymphadenopathy. CARDIOVASCULAR: irr irr without murmurs, gallops, or rubs. RESPIRATORY: Breath sounds equal bilaterally. No accessory muscle use. GASTROINTESTINAL: Abdomen soft, non-tender, nondistended. EXTREMITIES: No cyanosis, or edema. NEUROLOGICAL: Awake, alert, and oriented x 3. Non-focal. Laboratory Laboratory Tests Test 08/17/17 14:12 White Blood Count 5.9 Red Blood Count 4.60 Hemoglobin 13.8 Hematocrit 43.2 Mean Corpuscular Volume 93.8 Mean Corpuscular Hemoglobin 30.1 Mean Corpuscular Hemoglobin Concent 32.1 Red Cell Distribution Width 12.8 Platelet Count 245 Mean Platelet Volume 8.2 Neutrophils (%) (Auto) 63.7 Lymphocytes (%) (Auto) 20.5 Monocytes (%) (Auto) 11.9 Eosinophils (%) (Auto) 3.2 Basophils (%) (Auto) 0.7 Neutrophils # (Auto) 3.8 Lymphocytes # (Auto) 1.2 Monocytes # (Auto) 0.7 Eosinophils # (Auto) 0.2 Basophils # (Auto) 0.0 CBC Comment DIFF FINAL Differential Comment Prothrombin Time 10.7 Prothromb Time International Ratio 1.1 Activated Partial Thromboplast Time 25.1 Blood Urea Nitrogen 17 Creatinine 1.10 Random Glucose 115 Calcium Level 8.8 Magnesium Level 2.1 Sodium Level 138 Potassium Level 3.4 Chloride Level 101 Carbon Dioxide Level 32.2 Anion Gap 5 Estimat Glomerular Filtration Rate 66 Troponin I LESS THAN 0.02 Result Diagram: 08/17/17 1412 08/17/17 1412 Imaging Last Impressions Chest X-Ray 08/17/17 1405 Signed Impressions: Service Date/Time: July 14:19 - CONCLUSION: Normal examination. Shawn Cotton MD Assessment and Plan Problem List: (1) Atrial fibrillation ICD Codes: I48.91 - Unspecified atrial fibrillation Status: Acute Plan: Atypical chest pain. Cardiac risk factor Age, HTN, HLD. Related to a lot of stress lately due to 's recent illness. He remains afebrile, hemodynamically stable and chest pain free. First set o Troponin negative. EKG afib. CHADS2>2, for which chronic OAC recommended if no contraindications. Recommendations - HOLD Lopressor - Start OAC if no contraindications - 2Decho - Telemetry - TSH, Free T3 and T4 - Cycle Cardiac markers Q6H x3 - Hold BB, AV blocking agents - Lexiscan Stress Test, If unremarkable d/c home with Automotive Design Drafter follow up Thank you for the opportunity to take part in the care of this patient (2) Chest pain ICD Codes: R07.9 - Chest pain, unspecified Status: Acute (3) HTN (hypertension) ICD Codes: I10 - Essential (primary) hypertension Problem Qualifiers (1) Atrial fibrillation: Qualified Codes: I48.0 - Paroxysmal atrial fibrillation (2) Chest pain: Qualified Codes: R07.9 - Chest pain, unspecified Anglin-Roman Zheng MD Aug 17, 2017 18:45
--- NOTE | 2017-08-17 20:40 | EKG ---
Date Performed: 08/17/2017 Time Performed: 19:34:08 PTAGE: 72 years EKG: ATRIAL FIBRILLATION WITH SLOW VENTRICULAR RESPONSE MARKED LEFT AXIS DEVIATION ABNORMAL ECG No significant change from prior electrocardiogram. PREVIOUS TRACING : 08/17/2017 13.39 DOCTOR: Anam Renner Interpretating Date/Time 08/17/2017 20:39:56
[2017-08-17] MEDS ORDERED: SENNOSIDES 8.6 MG TAB PO PRN (21:00)
[2017-08-17] MEDS ORDERED: cloNIDine HCL 0.1 MG TAB PO SCH (21:00)
[2017-08-17] MEDS: SODIUM CHLORIDE 0.9% FLUSH 10 ML FLUSH IV FLUSH SCH (21:00)
[2017-08-17] MEDS ORDERED: PRAVASTATIN SOD 80 MG TAB PO SCH (21:00)
[2017-08-17] MEDS ORDERED: TEMAZEPAM 7.5 MG CAP PO ONE (22:00)
[2017-08-18 04:00] VITALS: BP 137/81; PULSE 63; RESP 18; TEMP 96.4; O2SAT 99
[2017-08-18 04:04] LABS: AUTOMATED NEUTROPHIL # 4.5 TH/MM3 (1.8-7.7); BASOPHIL % 0.5 % (0.0-2.0); EOSINOPHIL # 0.2 TH/MM3 (0-0.4); EOSINOPHIL % 3.1 % (0.0-4.0); HEMATOCRIT 39.5 % (39.0-51.0); HEMOGLOBIN 13.5 GM/DL (13.0-17.0); LYMPHOCYTE # 1.4 TH/MM3 (1.0-4.8); MEAN CELL VOLUME 92.6 FL (80.0-100.0); MEAN CORPUSCULAR HEMOGLOBIN 31.6 PG (27.0-34.0); MEAN CORPUSCULAR HGB CONC 34.2 % (32.0-36.0); MEAN PLATELET VOLUME 8.2 FL (7.0-11.0); MONOCYTE # 0.7 TH/MM3 (0-0.9); NEUT % 65.4 % (16.0-70.0); PLATELET COUNT 210 TH/MM3 (150-450); RED BLOOD COUNT 4.26 MIL/MM3 (4.50-5.90); RED CELL DISTRIBUTION WIDTH 12.1 % (11.6-17.2); WHITE BLOOD COUNT 6.8 TH/MM3 (4.0-11.0)
[2017-08-18 04:13] LABS: CALCIUM 8.4 MG/DL (8.5-10.1)
[2017-08-18 04:14] LABS: BICARBONATE 33.4 MEQ/L (21.0-32.0)
[2017-08-18 04:17] LABS: CREATININE 1.3 MG/DL (0.60-1.30)
[2017-08-18 08:00] VITALS: BP 130/85; PULSE 62; RESP 14; TEMP 98; O2SAT 96
[2017-08-18 08:09] VITALS: PULSE 66
--- NOTE | 2017-08-18 08:11 | EKG ---
Date Performed: 08/17/2017 Time Performed: 13:39:09 PTAGE: 72 years EKG: ATRIAL FIBRILLATION WITH SLOW VENTRICULAR RESPONSE BORDERLINE LEFT AXIS DEVIATION PROLONGED QT INTERVAL ABNORMAL ECG NO PREVIOUS TRACING DOCTOR: Anam Renner Interpretating Date/Time 08/18/2017 08:09:15
[2017-08-18] MEDS: SODIUM CHLORIDE 0.9% FLUSH 10 ML FLUSH IV FLUSH SCH (08:32)
[2017-08-18] MEDS ORDERED: REGADENOSON INJ 0.4 MG/5 ML SYR IV ONE (08:57)
[2017-08-18] MEDS ORDERED: amLODIPine BESYLATE 5 MG TAB PO SCH (09:00)
[2017-08-18] MEDS ORDERED: MELOXICAM 15 MG TAB PO SCH (09:00)
[2017-08-18] MEDS ORDERED: HYDROCHLOROTHIAZIDE 25 MG TAB PO SCH (09:00)
[2017-08-18] MEDS ORDERED: PANTOPRAZOLE SOD 20 MG DELAYED RELEASE TAB PO SCH (09:00)
[2017-08-18] MEDS ORDERED: APIXABAN 5 MG TABLET PO SCH (09:00)
--- NOTE | 2017-08-18 10:11 | RADRPT ---
EXAM DATE/TIME: 08/18/2017 08:54 [facility] COMPARISON: CHEST SINGLE AP, August 17, 2017, 14:19. INDICATIONS : Left chest pain. Atrial fibrillation. DOSE: 25.4 mCi Tc99m Myoview at stress. 8.7 mCi Tc99m Myoview at rest. 0.4 mg Lexiscan STRESS SYMPTOMS: Shortness of breath. EJECTION FRACTION: 68% MEDICAL HISTORY : Hypertension. Gastroesophageal reflux disease. Hypercholesterolemia. SURGICAL HISTORY : Back. Cardiac catherization. ENCOUNTER: Initial ACUITY: 1 day PAIN SCALE: 4/10 LOCATION: Left chest TECHNIQUE: The patient underwent pharmacologic stress with infusion of prescribed dose. Continuous ECG tracing was monitored during stress. Gated SPECT imaging was performed after stress and conventional SPECT i maging was performed at rest. The examination was performed on a SPECT/CT scanner, both attenuation and non-corrected datasets were reviewed. FINDINGS: DISTRIBUTION: The maximum perfused segment at stress is in the anterior lateral wall. PERFUSION STUDY: The pattern of perfusion at stress is within normal limits. GATED STUDY: There is intact wall motion and thickening without hypokinetic or dyskinetic segments. CONCLUSION: Normal myocardial perfusion scan RISK CATEGORY: Low (<1% Annual Mortality Rate) Jeremy Falcon MD on August 18, 2017 at 10:08 Board Certified Radiologist. This report was verified electronically.
[2017-08-18 12:00] VITALS: BP 147/93; PULSE 61; RESP 14; TEMP 97; O2SAT 96
--- NOTE | 2017-08-18 14:03 | EKG ---
Date Performed: 08/18/2017 Time Performed: 02:14:47 PTAGE: 72 years EKG: ATRIAL FIBRILLATION WITH SLOW VENTRICULAR RESPONSE MARKED LEFT AXIS DEVIATION NONSPECIFIC T -WAVE ABNORMALITY ABNORMAL ECG No significant change from prior electrocardiogram. PREVIOUS TRACING : 08/17/2017 19.34 DOCTOR: Anam Renner Interpretating Date/Time 08/18/2017 14:01:48
[2017-08-18] MEDS ORDERED: APIX5TAB PO (16:06)
--- NOTE | 2017-08-18 16:09 | HHI.DS ---
Discharge Summary Admission Date Aug 17, 2017 at 15:21 Discharge Date: Aug 18, 2017 Admitting Diagnosis ATRIAL FIBRILLATION, BRADYCARDIA, CHEST PAIN (1) HTN (hypertension) ICD Code: I10 - Essential (primary) hypertension (2) Atrial fibrillation ICD Code: I48.91 - Unspecified atrial fibrillation Status: Acute (3) Chest pain ICD Code: R07.9 - Chest pain, unspecified Status: Acute Procedures none Brief History - From Admission This is a 72 year old male with paroxysmal afib for 8 years. HE has felt poorly the last few days and today developed left side chest pain for a few hours. His pain was severe but without nausea or diaphoresis. He has come to the er for further eval. HE is in slow AFIB on telemetry and it is persistent. His chest pain has resolved spontaneously. His pm technician was notified and he has been recommended to be observed overnight. CBC/BMP: 08/18/17 0350 08/18/17 0350 Significant Findings Laboratory Tests Test 08/17/17 14:12 08/17/17 19:45 08/18/17 03:50 Monocytes (%) (Auto) 11.9 % (0.0-8.0) 11.0 % (0.0-8.0) Random Glucose 115 MG/DL (74-106) 120 MG/DL (74-106) Potassium Level 3.4 MEQ/L (3.5-5.1) Carbon Dioxide Level 32.2 MEQ/L (21.0-32.0) 33.4 MEQ/L (21.0-32.0) Estimat Glomerular Filtration Rate 66 ML/MIN (>89) 54 ML/MIN (>89) Troponin I LESS THAN 0.02 NG/ML LESS THAN 0.02 NG/ML LESS THAN 0.02 NG/ML Red Blood Count 4.26 MIL/MM3 (4.50-5.90) Blood Urea Nitrogen 21 MG/DL (7-18) Calcium Level 8.4 MG/DL (8.5-10.1) Imaging Last Impressions Myocardial Perfusion Scan Nuc Med 08/18/17 0600 Signed Impressions: Service Date/Time: Friday, August 18, 2017 08:54 - CONCLUSION: Normal myocardial perfusion scan RISK CATEGORY: Low (<1%% Annual Mortality Rate) Jeremy Falcon MD Chest X-Ray 08/17/17 1405 Signed Impressions: Service Date/Time: July 14:19 - CONCLUSION: Normal examination. Shawn Cotton MD PE at Discharge GENERAL: This is a well-nourished, well-developed patient, in no apparent distress. CARDIOVASCULAR: afib bradycardia without murmurs, gallops, or rubs. RESPIRATORY: Clear to auscultation. Breath sounds equal bilaterally. No wheezes , rales, or rhonchi. GASTROINTESTINAL: Abdomen soft, non-tender, nondistended. Normal active bowel sounds MUSCULOSKELETAL: Extremities without clubbing, cyanosis, or edema. NEURO: Alert & Oriented x4 to person, place, time, situation. Moves all ext x4 Pt update on day of discharge Patient doing well and ambulatory no new complaints. Echocardiogram report obtained from primary cardiology office No new discharge plans discussed with patient, spouse and cardiology Hospital Course This patient is a 72-year-old gentleman with a history of paroxysmal atrial fibrillation appears to have persistent A. fib at this time and was treated for the same with Eliquis, and was monitored overnight in telemetry, and repeat echocardiogram was performed. Patient did well.Myocardial perfusion stress test was negative. Pt Condition on Discharge: Good Discharge Disposition: Discharge Home Discharge Time: <= 30 minutes Discharge Instructions DIET: Follow Instructions for: Heart Healthy Diet Activities you can perform: Regular-No Restrictions Follow up Referrals: Cardiology - 1 Week with Brando Elise MD New Medications: Apixaban (Eliquis) 5 Mg Tab 5 MG PO BID for afib, #62 TAB Continued Medications: Amlodipine (Amlodipine) 5 Mg Tab 5 MG PO DAILY for Blood Pressure Management, #30 TAB 0 Refills Clonidine (Clonidine) 0.1 Mg Tab 0.1 MG PO HS for Blood Pressure Management, #60 TAB 0 Refills Meloxicam (Meloxicam) 15 Mg Tab 15 MG PO DAILY for Arthritis Pain, #30 TAB 0 Refills Metoprolol Tartrate (Metoprolol Tartrate) 50 Mg Tab 50 MG PO BID, #60 TAB 0 Refills Omeprazole (Omeprazole) 20 Mg Tab 20 MG PO DAILY, #30 TAB 0 Refills Simvastatin (Simvastatin) 40 Mg Tab 40 MG PO HS for Cholesterol Management, #30 TAB 0 Refills Discontinued Medications: Hydrochlorothiazide (Hydrochlorothiazide) 25 Mg Tab 25 MG PO DAILY, #30 TAB 0 Refills Shaina Leblanc MD Aug 18, 2017 16:09
[2017-08-19] MEDS ORDERED: ASPIRIN 325 MG TAB PO SCH (09:00)
--- NOTE | 2017-08-21 09:11 | ECHRPT ---
Indication: CONCLUSIONS Normal left ventricular size and wall thickness. The left ventricular systolic function is normal wi th an estimated ejection fraction in the range of 60-65%. Normal wall motion. Trace mitral valve regurgitation. There is trace tricuspid valve regurgitation. The estimated pulmonary arterial pressure is 29.4 mmHg. BP: / HR: Rhythm: Other MEASUREMENTS (Male / Female) Normal Values Technical Quality:Fair 2D ECHO LV Diastolic Diameter PLAX 4.2 cm 4.2 - 5.9 / 3.9 - 5.3 cm LV Systolic Diameter PLAX 3.2 cm IVS Diastolic Thickness 1.3 cm 0.6 - 1.0 / 0.6 - 0.9 cm LVPW Diastolic Thickness 1.3 cm 0.6 - 1.0 / 0.6 - 0.9 cm LV Relative Wall Thickness 0.6 LVOT Diameter 1.9 cm M-MODE Aortic Root Diameter MM 3.0 cm LA Systolic Diameter MM 4.8 cm LA Ao Ratio MM 1.6 AV Cusp Separation MM 1.9 cm DOPPLER AV Peak Velocity 130.0 cm/s AV Peak Gradient 6.8 mmHg LVOT Peak Velocity 99.2 cm/s LVOT Peak Gradient 3.9 mmHg AV Area Cont Eq pk 2.2 cm MR Peak Velocity 318.0 cm/s MR Peak Gradient 40.4 mmHg Mitral E Point Velocity 84.4 cm/s Mitral A Point Velocity 37.0 cm/s Mitral E to A Ratio 2.3 LV E' Lateral Velocity 10.0 cm/s Mitral E to LV E' Lateral Ratio 8.4 LV E' Septal Velocity 8.8 cm/s Mitral E to LV E' Septal Ratio 9.6 TR Peak Velocity 220.0 cm/s TR Peak Gradient 19.4 mmHg Right Atrial Pressure 10.0 mmHg Pulmonary Artery Systolic Pressu 29.4 mmHg Right Ventricular Systolic Press 29.4 mmHg PV Peak Velocity 89.6 cm/s PV Peak Gradient 3.2 mmHg FINDINGS LEFT VENTRICLE Normal left ventricular size and wall thickness. The left ventricular systolic function is normal wi th an estimated ejection fraction in the range of 60-65%. Normal wall motion. RIGHT VENTRICLE Normal right ventricular size and systolic function. LEFT ATRIUM The left atrial size is normal. RIGHT ATRIUM The right atrial size is normal. ATRIAL SEPTUM Normal atrial septal thickness without atrial level shunting by limited color doppler interrogation. AORTA The aortic root and proximal ascending aorta are normal in size on limited imaging. MITRAL VALVE Trace mitral valve regurgitation. AORTIC VALVE Trileaflet aortic valve. No aortic valve stenosis or regurgitation. TRICUSPID VALVE There is trace tricuspid valve regurgitation. The estimated pulmonary arterial pressure is 29.4 mmHg. PULMONARY VALVE No pulmonary valve regurgitation or stenosis. VESSELS The inferior vena cava is normal in size. PERICARDIUM No pericardial effusion. Dwaine Wheat MD Edited by: [employer] Product Inspection Supervisor (Electronically Signed) Final Date:18 August 2017 14:11 Amended: 21 August 2017 09:10
== END 2017-08-18 17:08 | disposition home or self-care (01) ==
LOC: PHED 13:36 → PHEDA 15:21 → PH3A 16:01
PROVIDERS: ADMIT Hospitalist; ATTEND Hospitalist
DX: I48.1 Persistent atrial fibrillation (principal); I10 Essential (primary) hypertension; R07.9 Chest pain, unspecified; R94.31 Abnormal electrocardiogram [ECG] [EKG]; E78.5 Hyperlipidemia, unspecified; H91.90 Unspecified hearing loss, unspecified ear; K21.9 Gastro-esophageal reflux disease without esophagitis; Z79.01 Long term (current) use of anticoagulants; Z87.442 Personal history of urinary calculi
CPT/HCPCS: 71045; 78452; 80048; 83735; 84484; 85025; 85610; 85730; 93005; 93017; 93306; 99285; A9502; G0378; J2785

== ENCOUNTER 2017-09-26 10:53 | Day surgery (SDC) | payer OTHER ==
[~2017-09-26] VITALS: Ht 190.5 cm; Wt 98.3 kg
[~2017-09-26 10:53] MED LIST changes: +APIX5TAB PO; -DICY10 PO; -HYDR25TA5 PO
[2017-09-26 11:00] VITALS: BP 148/92; PULSE 65; RESP 18; O2SAT 98
[2017-09-26] MEDS ORDERED: METOPROLOL TARTRATE 25 MG TAB PO PRN (11:30)
[2017-09-26] MEDS ORDERED: POVIDONE IODINE 5% (ANTISEPSIS KIT) 4 APPLICATIONS EACH NARE PRN (11:30)
[2017-09-26] MEDS ORDERED: SODIUM CHLORID 0.9% 500 ML IV PRN (11:30)
[2017-09-26] MEDS ORDERED: SODIUM CHLORID 0.9% 500 ML INJ 500 ML IV SCH (11:30)
[2017-09-26] MEDS ORDERED: LORazepam 1 MG TAB SL SCH (11:30)
[2017-09-26] MEDS ORDERED: CHLORHEXIDINE GLUCONATE 2 % 1 PACK (2 CLOTHS) TOPICAL PRN (11:30)
[2017-09-26] MEDS ORDERED: LACTATED RINGER'S 1000 ML IV PRN (11:30)
[2017-09-26 11:47] LABS: AUTOMATED NEUTROPHIL # 4.6 TH/MM3 (1.8-7.7); BASOPHIL % 0.6 % (0.0-2.0); EOSINOPHIL # 0.2 TH/MM3 (0-0.4); EOSINOPHIL % 2.2 % (0.0-4.0); HEMATOCRIT 42.2 % (39.0-51.0); HEMOGLOBIN 14.7 GM/DL (13.0-17.0); LYMPH % 20.3 % (9.0-44.0); LYMPHOCYTE # 1.5 TH/MM3 (1.0-4.8); MEAN CELL VOLUME 89.8 FL (80.0-100.0); MEAN CORPUSCULAR HEMOGLOBIN 31.4 PG (27.0-34.0); MEAN PLATELET VOLUME 8.7 FL (7.0-11.0); MONO % 16.1 % (0.0-8.0); MONOCYTE # 1.2 TH/MM3 (0-0.9); NEUT % 60.8 % (16.0-70.0); PLATELET COUNT 294 TH/MM3 (150-450); RED BLOOD COUNT 4.69 MIL/MM3 (4.50-5.90); RED CELL DISTRIBUTION WIDTH 12.9 % (11.6-17.2); WHITE BLOOD COUNT 7.6 TH/MM3 (4.0-11.0)
[2017-09-26 11:58] LABS: INTERNATIONAL NORMALIZED RATIO 1.1 RATIO; PROTHROMBIN TIME - PATIENT 10.8 SEC (9.8-11.6)
[2017-09-26] MEDS ORDERED: DEXAMETHASONE SOD PHOS 4 MG/ML VIAL IV ONE (12:00)
[2017-09-26] MEDS ORDERED: PROPOFOL 200 MG/20 ML AMP IV ONE (12:00)
[2017-09-26] MEDS ORDERED: ROCURONIUM INJ 50 MG/5 ML SYRINGE IV PUSH ONE (12:00)
[2017-09-26] MEDS ORDERED: ONDANSETRON HCL 4 MG/2 ML VIAL IV ONE (12:00)
[2017-09-26] MEDS ORDERED: LIDOCAINE HCL 1% PF 5 ML SYRINGE OTHER ONE (12:00)
[2017-09-26 12:06] LABS: BICARBONATE 29.8 MEQ/L (21.0-32.0); CALCIUM 9.1 MG/DL (8.5-10.1); CREATININE 1.09 MG/DL (0.60-1.30)
[2017-09-26] MEDS ORDERED: HEPARIN-D5W 25,000 U/250 ML 250 ML ONE (13:49)
[2017-09-26] MEDS ORDERED: HEPARIN SODIUM - IV 10,000 UNITS/10 ML VIAL ONE (13:49)
[2017-09-26] MEDS ORDERED: PROTAMINE SULFATE 50 MG/5 ML VIAL ONE (13:49)
[2017-09-26] MEDS ORDERED: LEVOFLOXACIN 500 MG PREMIX INJ 100 ML IV ONE (13:49)
[2017-09-26] MEDS ORDERED: FUROSEMIDE 40 MG/4 ML VIAL ONE (17:15)
--- NOTE | 2017-09-26 17:29 | PD.CARD ---
Atrial Fibrillation Ablation PROCEDURE DATE: Sep 26, 2017 PROCEDURES PERFORMED: 1. Electrophysiology study on Isuprel infusion 2. CS cannulation 3. 3-D mapping 4. Transseptal approach 5. Right and left heart catheterization 6. Intracardiac echo 7. Radiofrequency ablation of atrial fibrillation 8. Pulmonary vein isolation 9. Posterior wall ablation 10. Mitral valve isolation 11. Mitral line creation 12. Left atrial tachycardia ablation 13. Roof line creation 14. Floor line creation 15. Anterior wall ablation 16. Cardioversion 17. atrial flutter ablation 18. Coronary sinus isolation INDICATIONS FOR THE PROCEDURE Mr. Kuo is a 72-year-old male with atrial fibrillation, very symptomatic, on anticoagulation referred for electrophysiology study and ablation. The risks, the nature and the benefits of the procedure were clearly stated to him. The risks include pneumothorax, cardiac perforation, stroke, need for open heart surgery and even . The patient understood and agreed to proceed. DESCRIPTION OF THE PROCEDURE IN DETAIL As written informed consent was obtained prior to esophageal echocardiogram, the patient was kept on the table where he was prepped and draped in the usual sterile fashion. Conscious sedation was initiated and maintained throughout the procedure by the anesthesiologist. Once sedation was verified, the right and left inguinal areas were anesthetized with 2% Xylocaine. Using modified Seldinger technique, the left femoral vein was cannulated on three occasions, three guidewires were advanced. Over the wire a 6, 7 and a 10-[place] Hemaquet were advanced. Then the left femoral artery was cannulated on one occasion, one guidewire was advanced. Over the wire a 4-[place] Hemaquet was advanced. Then the right femoral vein was cannulated on one occasion, one guidewire was advanced. Over the wire a 8-[place] Hemaquet was advanced. Then under fluoroscopic guidance through the 6 and 7-[place] Hemaquet, two 5-[place] James curved quadripolar electrophysiology catheters were advanced and placed around the His as well as coronary sinus. Basic interval was measured. The patient was in atrial fibrillation. Through the 10-[place] Hemaquet, a Cordis Madrigal AcuNav intracardiac echo catheter was advanced and placed at the right atrium. Multiple view was obtained. There was no pericardial effusion, pulmonary vein was seen, atrial septal was visualized. Then the 8-[place] Hemaquet in the right femoral vein was exchanged for Agilis transseptal sheath that was placed all the way to the superior vena cava. Through the sheath a Vanessa needle was advanced, then the sheath, the dilator and the needle were progressed until foci engaged. Once engaged, the needle was advanced. RF was delivered for 2 seconds. I was able to cross into the left atrium. Once the needle crossed, the dilator was advanced. Once the dilator crossed, the sheath was advanced. Once the sheath crossed, the dilator and the needle were removed. At this point I did flood the system and fluid movement was seen in the left atrium the indicates the sheath is in good position. The patient already received 10,000 units of heparin. The goal is to keep an ACT around 350 during ablation. Then through the sheath a [employer] Braydon 20 pulse circumferential catheter was advanced. Using [employer] endocardial solution mapping system, a two-dimensional configuration of the left atrium was obtained. Points were taken at the left superior and inferior veins, right superior and inferior veins, mitral valve, and appendages. Then through the sheath a [employer]. Braydon TactiCath 65cm 3.5mm irrigated tipped mapping and radiofrequency ablation catheter was advanced. Esophageal probe was placed temperature monitoring during ablation. When it increased to 0.5 degrees Celsius above baseline, I moved to a different area of the atrium. First I did isolate the left superior and inferior vein. I did make a big [place] around the veins. Posterior was ablated. Then a roof line was created, a floor line was created, a mitral line was isolated, then the mitral valve was isolated. I did create a line from the floor to the roof area, passing by the left atrial appendage. Then the right superior and inferior veins were isolated. patient went into atrial tachycardia. I did remap the atrium. Anterior was ablated. Left atrial appendage was isolated. Lateral wall was ablated. Tachy arrhythmia changed activation. Atrial fib seen in right atrium. At this point I decided to proceed with cardioversion. A 200 sync biphasic joule was delivered that converted the patient into sinus rhythm. patient went back again into atrial tachycardia. I did remap the atrium. No early activation seen. I did decannulate the transeptal. Coronary sinus was isolated. Then I did exchange fro Cordis Madrigal F curve, 8 mm, mapping and radiofrequency ablation catheter. atrial flutter was ablated. A critical isthmus line was created. I did proceed again with cardioversion. A 200 synch biphasic joules converted the patient back into sinus rhythm. At that point I did advance the circumferential catheter again into the vein. There was no signal into the vein, pacing from the vein showed no conduction to the atrium. Isuprel infusion was initiated at 20 mcg for over 10 minutes. No tachyarrhythmia was induced, post Isuprel no tachyarrhythmia was induced. At that point the procedure was complete. All catheters were removed, atrial septal sheath was exchanged for 9-[place] Hemaquet , intracardiac echo showed no pericardial effusion. There is still good flow in the pulmonary vein. The patient is going to be transferred to the recovery room. No incident report. The patient tolerated the procedure. Blood loss was minimal. FINDINGS 1. Electrocardiogram: At baseline the patient was in atrial fibrillation, post procedure the patient was in sinus rhythm. 2. Basic interval: Base cycle length was around 740. Post ablation she was around 890 milliseconds. AH at 96 and HV at 58 milliseconds. 3. Tachyarrhythmia: Atrial fibrillation was mapped and ablated. Atrial tachycardia was ablated. atrial flutter was ablated. The ablation was successful. CONCLUSION Successful electrophysiology study, mapping, radiofrequency ablation of atrial fibrillation, left atrial tachycardia, pulmonary vein isolation, posterior ablation, mitral valve isolation, mitral line creation, roof line creation, floor line creation, atrial flutter ablation, and cardioversion. COMMENTS AND RECOMMENDATIONS The patient is going to be transferred to the telemetry unit. Will be observed and when stable can be discharged home. Ewelina Son MD Sep 26, 2017 17:29
[2017-09-26] MEDS ORDERED: SODIUM CHLOR 0.9% 250 ML INJ 250 ML IV PRN (17:30)
[2017-09-26] MEDS ORDERED: BACITRACIN OINT 0.9 GM PKT TOP ONE (17:30)
[2017-09-26] MEDS ORDERED: ATROPINE SULFATE 1 MG/ML VIAL IV PUSH PRN (17:30)
[2017-09-26] MEDS ORDERED: oxyCODONE/ACETAMINOPHEN 5 MG/325 MG TAB PO PRN ×2 (17:30)
[2017-09-26] MEDS ORDERED: LIDOCAINE HCL 1% 20 ML VIAL INFIL PRN (17:30)
[2017-09-26] MEDS ORDERED: ONDANSETRON HCL 4 MG/2 ML VIAL IV PUSH PRN (17:30)
[2017-09-26] MEDS ORDERED: LORazepam 2 MG/ML VIAL IV PUSH PRN (17:30)
--- NOTE | 2017-09-26 18:12 | CATHPROC ---
Patient Name: PEGGY MARTINEZ Study #: [id number] Initial MD: Ewelina Son Date of : 1945 Study Date: 09/26/2017 Cardiac Catheterization Report 09/26/2017 6:12:12 PM Financial #: [id number] 1 of 11 Patient Name: PEGGY MARTINEZ Study #: [id number] Initial MD: Ewelina Son Date of : 1945 Study Date: 09/26/2017 Entire Case Report Patient Information Patient Name PEGGY MARTINEZ Date of 1945 Age 72 years Financial # [id number] Gender M AlternateID Lab Number 2 Room Number DC10 Height (in) 75.0 Height (cm) 190.5 BSA 2.27 Weight (lbs) 216.3 Weight (kg) 98.3 Patient Address/Phone Number Home Address [facility] Home Phone Number [phone] [facility] [address] Study Information Study Number Admission Scheduled Start Study Start [id number] Sep 26 2017 10:53AM 09/26/2017 Sep 26 2017 1:31PM [place] [facility] Electrophysiology Study Admit Source Facility Department Other [facility] - Check Examiner Physician and Clinical Staff Initial Ewelina Hernandez Newspaper Stuffer Db Colindres,RT(R) Other Anesthesia, 3RD PRESSMAN Recorder Radha Michelle,PAOLA Scrub Valentina Miguel,RT(R) TECH2 Procedures Performed Procedure Location (Site) Vessel Name Ablation Procedure Cardioversion ICE CATHETER INSERT RA Atruim RF Ablation LT. ATRIUM LT. ATRIUM Equipment Time Painter Helper Spray Description Size Mfg Part Number Used/Scraped NEEDLE, TRANSSEPTAL NRG 98 [id number] 13:33 [facility] Used C1 *[id number] BIOSENSE MARLOW CATHETER, CELSIUS DS, 8MM, F [id number] 16:44 FR 7 Used INC. TYPE QUAD *[id number] 09/26/2017 6:12:12 PM Financial #: [id number] 2 of 11 Patient Name: PEGGY MARTINEZ Study #: [id number] Initial MD: Ewelina Son Date of : 1945 Study Date: 09/26/2017 [employer]/ EP [id number] 13:33 KIT, TRANSDUCER / AFIB Used PACER *[id number] CATHETER, TACTICATH ABLAT BUNDLE 16:32 [facility] Used 65 BUNDLE *[id number]- BUNDLE [id number] CATHETER, TACTICATH ABLAT BUNDLE 13:33 [facility]UN[facility] Used 65 BUNDLE *[id number]- BUNDLE [id number] CATHETER, FR7 OPTIMA SPIRAL 13:33 [facility] FR7 *[id number]- Used BUNDLE BUNDLE [id number] 13:33 [facility] CATHETER, JSN, QUAD BUNDLE FR 5 *[id number]- Used BUNDLE [id number] 13:33 [facility] CATHETER, JSN, QUAD BUNDLE FR 5 *[id number]- Used BUNDLE [id number] SET, COOL POINT TUBING 13:33 [facility] *[id number]- Used BUNDLE BUNDLE SHEATH, FR8.5 STEERABLE SM 13:33 [facility] 71CM [id number] Used 71CM BUNDLE COVER, TRANSDUCER CABLE 612-113 13:33 [employer] Used ACUNAV *[id number] 13:33 CORDIS/PACER SHEATH, FR9 KEN 11CM FR 9 [id number] Used [id number] 13:33 [employer] PACK, CCL CUSTOM * Used *[id number] 13:33 [employer] PACER FIELDS, LIMB * 2530 *[id number] Used [id number] 13:33 Palm MEDICAL SHEATH, FR4.5 PRELUDE 11CM FR 4.5 Used [id number] 13:33 NAMIC TUBING, HIGH PRESSURE 48" 48" Used *[id number] 13:33 NAMIC TUBING, HIGH PRESSURE 48" 48" Used *[id number] 13:33 [employer] BLANKET,WARM AIR CCL * Used *8898525 EL5277 13:33 [facility] MEDICAL ELECTRODE KIT, NIMA X SURFACE * Used *[id number] 188318 13:33 [facility] MEDICAL SHEATH, EPS, FR6 FAST CATH FR 6 Used *[id number] 13:33 [facility] MEDICAL SHEATH, EPS, FR7 FAST CATH FR 7 [id number] Used 779243 13:33 [facility] MEDICAL SHEATH, EPS, FR8 FAST CATH FR 8 Used *[id number] CATHETER, ACUNAV FR10 ICE [id number] 15:06 CONSTANCE FR 10 Used (CONSTANCE) *[id number] TERUMO MEDICAL 13:34 SHEATH, FR10 TURUMO FR 10 [id number] Used [facility], ELECTROSURGICAL 13:33 * [id number] *[id number] Used SURGICAL GROUNDING (BLUE) 09/26/2017 6:12:12 PM Financial #: [id number] 3 of 11 Patient Name: PEGGY MARTINEZ Study #: [id number] Initial MD: Ewelina Son Date of : 1945 Study Date: 09/26/2017 Insurance Information Insurance Payor Private Health Insurance Third Green Party Third Green Party Number HUMANA CHOICE PPO HUMCRPPO History: Allergies Allergy Reaction No Known Allergies History: Risk Factors Hypertension Dyslipidemia Yes Yes Labs Hgb (g/dl) Hct (%) RBC (MIL/MM3) WBC (l/cumm) Platelets (thousands) 11.60-17.00 35.00-51.00 4.00-5.90 4.00-11.00 150.00-450.00 14.0 42 4.6 7.6 294 Glucose (mg/dl) BUN (mg/dl) Creatinine (mg/dl) BUN:Creatinine (1:x) 74.00-106.00 7.00-18.00 0.50-1.30 10.00-20.00 108 17 1.0 17 Na (meq/l) K (meq/l) 136.00-145.00 3.50-5.10 139 3.7 INR (PTT:PT) 0.90-1.10 1.1 Medication Medication Total Dose (Bolus/Oral) Medication Total Dosage/Unit 1% XYLOCAINE 40 mL HEPARIN 86409 units LASIX 40 mg PROTAMINE 40 mg 09/26/2017 6:12:12 PM Financial #: [id number] Patient Name: PEGGY MARTINEZ Study #: [id number] Initial MD: Ewelina Son Date of : 1945 Study Date: 09/26/2017 Medications (Bolus/Oral) Medication Time Given Dosage/Unit Administered By Reason 1% XYLOCAINE 09/26/2017 2:59:06 PM 20 mL Ewelina Son 20 mL 1% XYLOCAINE given in lab by Ewelina Son in Left Groin via Subcutaneous. 1% XYLOCAINE 09/26/2017 3:01:50 PM 20 mL Ewelina Son 20 mL 1% XYLOCAINE given in lab by Ewelina Son in Right Groin via Subcutaneous. HEPARIN 09/26/2017 3:10:54 PM 52834 units Ewelina Son 05747 units HEPARIN given in lab by Ewelina Son via Peripheral IV. HEPARIN 09/26/2017 3:22:21 PM 4000 units Anesthesia, 3RD PRESSMAN As per physicians ve rbal order 4000 units HEPARIN given in lab by Anesthesia, 3RD PRESSMAN via Peripheral IV. Ordered by Ewelina Son. Reas on: As per physicians verbal order. HEPARIN 09/26/2017 3:36:25 PM 1000 units Anesthesia, 3RD PRESSMAN As per physicians ve rbal order 1000 units HEPARIN given in lab by Anesthesia, 3RD PRESSMAN via Peripheral IV. Ordered by Ewelina Son. Reas on: As per physicians verbal order. HEPARIN 09/26/2017 4:22:18 PM 3000 units Anesthesia, 3RD PRESSMAN As per physicians ve rbal order 3000 units HEPARIN given in lab by Anesthesia, 3RD PRESSMAN via Peripheral IV. Ordered by Ewelina Son. Reas on: As per physicians verbal order. LASIX 09/26/2017 5:17:12 PM 40 mg Anesthesia, 3RD PRESSMAN As per physicians verba l order 40 mg LASIX given in lab by Anesthesia, 3RD PRESSMAN via Peripheral IV. Ordered by Ewelina Son. Reason: As per physicians verbal order. PROTAMINE 09/26/2017 5:20:40 PM 40 mg Anesthesia, 3RD PRESSMAN As per physicians alexa bal order 40 mg PROTAMINE given in lab by Anesthesia, 3RD PRESSMAN via Peripheral IV. Ordered by Ewelina Son. Reason: As per physicians verbal order. Medication (Drip) Medication Time Given Dosage/Unit Concentration/Unit Diluent (ml) Solution HEPARIN DRIP 09/26/2017 3:22:53 PM 1000 units/hr 51776 units 250 D5W 1000 units/hr HEPARIN DRIP given in lab by Anesthesia, 3RD PRESSMAN via Peripheral IV. Pump/Drip Flow = 10 ml /hr using [place] [address] units in 250 ml. Ordered by Ewelina Son. Reason: As per physicians verbal order. ISUPREL 09/26/2017 4:59:36 PM 10 mcg/min 1 mg 250 NaCl .9 10 mcg/min ISUPREL given in lab by Anesthesia, 3RD PRESSMAN via Peripheral IV. Pump/Drip Flow = 150 ml/hr usi ng NaCl .9 with a concentration of 1 mg in 250 ml. Ordered by Ewelina Son. Reason: As per physicians verbal order. LEVAQUIN 09/26/2017 2:20:52 PM 100 mL/hr 500 100 NaCl .9 100 mL/hr LEVAQUIN given in lab by Anesthesia, 3RD PRESSMAN via Peripheral IV. Pump/Drip Flow = 0 ml/hr using NaCl .9 with a concentration of 500 in 100 ml. Ordered by Ewelina Son. Reason: As per physicians verbal order. 09/26/2017 6:12:12 PM Financial #: [id number] Patient Name: PEGGY MARTINEZ Study #: [id number] Initial MD: Ewelina Son Date of : 1945 Study Date: 09/26/2017 Initial Case Assessment Cardiovascular HR Rhythm NIBP Chest Pain 67 Af 175/89 0 Edema Present Skin color Skin None Normal Warm Dry Circulatory - Right Pulses Dorsalis Pedis 1 Scale (0,1,2,3,4,d) Circulatory - Left Pulses Dorsalis Pedis 1 Scale (0,1,2,3,4,d) Circulatory - Lower Extremities Color Lower Right Color Lower Left Normal Normal Neurological State Oriented to time-place- Alert Moves all extremities person Respiration - General Respiration Rate SpO2 (%) (B/min) 20 98 09/26/2017 6:12:12 PM Financial #: [id number] Patient Name: PEGGY MARTINEZ Study #: [id number] Initial MD: Ewelina Son Date of : 1945 Study Date: 09/26/2017 Final Case Assessment Cardiovascular HR Rhythm NIBP Chest Pain 97 sr 108/66 0 Edema Present Skin color Skin Mild Normal Warm Dry Circulatory - Right Pulses Dorsalis Pedis 2 Scale (0,1,2,3,4,d) Circulatory - Left Pulses Dorsalis Pedis 2 Scale (0,1,2,3,4,d) Circulatory - Lower Extremities Color Lower Right Color Lower Left Normal Normal Neurological State Lethargic Moves all extremities Respiration - General Respiration Rate SpO2 (%) (B/min) 22 93 Chronological Log Time Study Chronological Log 13:33:51 Patient arrived via Bed. 13:33:52 Patient Name, D.O.B, / Armband Verified By R.N. 13:33:53 Consent signed by the physician and the patient and verified by the Check Examiner staff. 13:33:53 Pre-op and post- op instructions given; patient acknowledges understanding of instructions. 13:33:55 Verbal Stimulation=2 Physical Stimulation=2 Airway=2 Respiration=2 TOTAL=8. (0=absent, 1=li mited, 2=present) 13:34:06 Patient has been NPO for More than 6Hrs. 13:34:08 Skin Breakdown-none per pt 13:34:09 Patient Warmer Placed on the Table. 13:34:38 Disposable Defibrillator Pads Placed On Patient. 09/26/2017 6:12:12 PM Financial #: [id number] Patient Name: PEGGY MARTINEZ Study #: [id number] Initial MD: Ewelina Son Date of : 1945 Study Date: 09/26/2017 13:34:40 Leah Prominences Protected 13:34:48 A # 20 IV was noted in the Antecubital (right). Grade = 0 0.9nacl @ kvo. 13:34:49 A # 20 IV was noted in the Antecubital (left). Grade = 0 0.9 nacl @ kvo. 13:34:50 History and physical on the chart or being dictated. Assessment: Initial Case, HR=67 BPM, Rhythm=Af, GICT=661/89 mmhg, Chest Pain=0, Edema=None, Col or=Normal, Skin = Warm, Dry Right Pulses: Wayne Ped=1 Left Pulses: Wayne Ped=1 13:41:46 Lower Right Extremities: Color=Normal Lower Left Extremities: Color=Normal Neurological: State=Alert, Ox3, GODINEZ Respiration: Resp=20 B/min, SpO2=98 % 13:45:25 Table restraints applied according to hospital policy 13:50:16 Reference ECG taken 13:58:22 Anesthesia at bedside. Assumes care of patient. Timur 14:05:21 Anesthesia present for intubation. 14 fr fields inserted w/o difficutly et clear yellow urin e obtained. 100 mL/hr LEVAQUIN given in lab by Anesthesia, 3RD PRESSMAN via Peripheral IV. Pump/Drip Flow = 0 ml/hr using NaCl .9 with 14:20:52 a concentration of 500 in 100 ml. Ordered by Ewelina Son. Reason: As per physicians verbal or sara. 14:22:30 Bilateral groins prepped with 2% chlorhexidine, and draped after a 3 minute waiting time. 14:53:30 MD arrived. Time Out. Correct patient, procedure, procedure equipment, site and side verified with physicia n present. Time 14:55:04 concurred by MD, individual staff and 3RD PRESSMAN. Time Out #2 - Consents verified, patient in correct position, all results are labled and displa yed, safety precautions 14:55:27 taken, antibiotics administered. Time out concurred by MD, individual staff and 3RD PRESSMAN in procedu re 14:55:51 Case Start 14:55:59 Sreekanth in progress. 14:58:29 Sreekanth complete. 14:59:06 20 mL 1% XYLOCAINE given in lab by Ewelina Son in Left Groin via Subcutaneous. 14:59:19 Vascular access was obtained in the Fem Vein (left). 14:59:29 Vascular access was obtained in the Fem Vein (left). 14:59:39 Vascular access was obtained in the Fem Vein (left). 14:59:45 Vascular access was obtained in the Fem Art (left). A SHEATH, FR4.5 PRELUDE 11CM FR 4.5 was advanced into the Fem Art (left) using the Modified Perla carmen technique. 14:59:59 0.9ns pressure bag connected. 15:00:26 A SHEATH, EPS, FR6 FAST CATH FR 6 was advanced into the Fem Vein (left) using the Modified Seldinger technique. 15:00:35 A SHEATH, EPS, FR7 FAST CATH FR 7 was advanced into the Fem Vein (left) using the Modified Seldinger technique. 15:00:42 A SHEATH, FR10 TURUMO FR 10 was advanced into the Fem Vein (left) using the Modified Seldin dahiana technique. 15:01:50 20 mL 1% XYLOCAINE given in lab by Ewelina Son in Right Groin via Subcutaneous. 15:02:12 Vascular access was obtained in the Fem Vein (right). 15:02:17 A SHEATH, EPS, FR8 FAST CATH FR 8 was advanced into the Fem Vein (right) using the Modified Seldinger technique. A CATHETER, JSN, QUAD BUNDLE FR 5 was advanced vis Fem Vein (left) and placed in the CS. Placem ent was visually 15:04:39 confirmed under fluoroscopy. A CATHETER, JSN, QUAD BUNDLE FR 5 was advanced vis Fem Vein (left) and placed in the HIS. Place ment was 15:04:53 visually confirmed under fluoroscopy. 09/26/2017 6:12:12 PM Financial #: [id number] Patient Name: PEGGY MARTINEZ Study #: [id number] Initial MD: Ewelina Son Date of : 1945 Study Date: 09/26/2017 15:06:05 CATHETER, ACUNAV FR10 ICE (Xopik) FR 10 Was Postioned. A SHEATH, FR8.5 STEERABLE SM 71CM BUNDLE 71CM was exchanged in the Fem Vein (right). This was n ecessary in 15:07:59 order for catheter support. 15:08:11 Randolph in 15:10:54 85857 units HEPARIN given in lab by Ewelina Son via Peripheral IV. 15:11:17 A eps was advanced to the right atrium and passed through the septal wall to the left atriu m. 15:11:20 Randolph out. A CATHETER, FR7 OPTIMA SPIRAL BUNDLE FR7 was advanced vis Fem Vein (right) and placed in the LA . Placement 15:11:47 was visually confirmed under fluoroscopy. Mapping in progress. 15:16:00 Activated Clotting Time Drawn 15:19:39 Mapping complete. Catheter was removed A CATHETER, TACTICATH ABLAT 65 BUNDLE was advanced vis Fem Vein (right) and placed in the LA. P lacement was 15:19:48 visually confirmed under fluoroscopy. 15:20:29 RF Ablation of the LT. ATRIUM with a CATHETER, TACTICATH ABLAT 65 BUNDLE. 15:22:04 ACT (Normal Range 90-180) = 278 4000 units HEPARIN given in lab by Anesthesia, 3RD PRESSMAN via Peripheral IV. Ordered by Ewelina Son . Reason: As per 15:22:21 physicians verbal order. 1000 units/hr HEPARIN DRIP given in lab by Anesthesia, 3RD PRESSMAN via Peripheral IV. Pump/Drip Flow = 10 ml/hr using 15:22:53 D[place] [address] units in 250 ml. Ordered by Ewelina Son. Reason: As per silvina vivas verbal order. 15:27:56 Activated Clotting Time Drawn 15:34:55 ACT (Normal Range 90-180) = 305 1000 units HEPARIN given in lab by Anesthesia, 3RD PRESSMAN via Peripheral IV. Ordered by Ewelina Son . Reason: As per 15:36:25 physicians verbal order. 15:43:34 Activated Clotting Time Drawn 15:47:56 ACT (Normal Range 90-180) = 356 16:17:04 Activated Clotting Time Drawn 16:19:00 ACT (Normal Range 90-180) = 315 16:19:25 ECG rhythm of AF noted. Patient cardioverted at 200 joules. Incomplete Success 3000 units HEPARIN given in lab by Anesthesia, 3RD PRESSMAN via Peripheral IV. Ordered by Ewelina Son . Reason: As per 16:22:18 physicians verbal order. 16:25:46 RF Ablation of the LT. ATRIUM with a CATHETER, TACTICATH ABLAT 65 BUNDLE. 2nd tacticath 16:31:43 Activated Clotting Time Drawn 16:43:43 ACT (Normal Range 90-180) = 351 16:44:33 Ablation Catheter was removed and exchanged for f type A CATHETER, CELSIUS DS, 8MM, F TYPE QUAD FR 7 was advanced vis Fem Vein (right) and placed in [facility]. 16:46:01 Placement was visually confirmed under fluoroscopy. 16:52:47 ECG rhythm of AF noted. Patient cardioverted at 300 joules. Success 10 mcg/min ISUPREL given in lab by Anesthesia, 3RD PRESSMAN via Peripheral IV. Pump/Drip Flow = 150 ml/ hr using NaCl .9 16:59:36 with a concentration of 1 mg in 250 ml. Ordered by Ewelina Son. Reason: As per physicians alexa bal order. 17:10:37 Isuprel off. 17:11:31 All catheter(s) removed without difficulty A SHEATH, FR9 KEN 11CM FR 9 was exchanged in the Fem Vein (right). This was necessary in ord er to achieve 17:13:27 vascular hemostasis. 40 mg LASIX given in lab by Anesthesia, 3RD PRESSMAN via Peripheral IV. Ordered by Ewelina Son. Reaso n: As per physicians 17:17:12 verbal order. 09/26/2017 6:12:12 PM Financial #: [id number] Patient Name: PEGGY MARTINEZ Study #: [id number] Initial MD: Ewelina Son Date of : 1945 Study Date: 09/26/2017 40 mg PROTAMINE given in lab by Anesthesia, 3RD PRESSMAN via Peripheral IV. Ordered by Ewelina Son. Reason: As per 17:20:40 physicians verbal order. 17:36:37 Activated Clotting Time Drawn 17:38:20 Left Fem Arterial sheath removed; pressure applied to access site DC. 17:38:46 Right fv sheath removed; pressure applied to access site by HH. 17:39:38 ACT (Normal Range 90-180) = 171 17:45:00 PACU called. Spoke to Clark. 17:45:17 Bedside Report will be given. 17:50:04 Left FV sheaths removed; pressure applied to access sites by DC. 17:59:45 Sterile dressing applied to right groin site. WNL. 18:08:00 Sterile dressing applied to left fem vein site. WNL 18:09:37 Pt extubated to 4L nc Assessment: Final Case, HR=97 BPM, Rhythm=sr, HADF=101/66 mmhg, Chest Pain=0, Edema=Mild, [place] r=Normal, Skin = Warm, Dry Right Pulses: Wayne Ped=2 Left Pulses: Wayne Ped=2 18:10:02 Lower Right Extremities: Color=Normal Lower Left Extremities: Color=Normal Neurological: State=Lethargic, GODINEZ Respiration: Resp=22 B/min, SpO2=93 % 18:10:41 Case End 18:10:48 No case complications noted. 18:10:49 Cine recording checked. 18:10:56 Ablation procedure performed: AFIB. 18:11:00 EP Procedure was performed. 18:11:22 Defibrillator and ground pads removed. Skin intact. 18:16:23 Patient moved to [place] healther. Transported to PACU w CRNAs End Study - Contrast Media Used In Study Contrast Total Opened (mL) Total Used (mL) Total Wasted (mL) Unspecified 0 0 0 End Study - Maximum Contrast Load Max Contrast Load (mL) 491.6 End Study - Radiation Exposure Fluoro Time (minutes) 1.5 09/26/2017 6:12:12 PM Financial #: [id number] Patient Name: PEGGY MARTINEZ Study #: [id number] Initial MD: Ewelina Son Date of : 1945 Study Date: 09/26/2017 End Study - Patient Disposition Complications Transferred To Interventional Outcome No Telemetry Bed successful 09/26/2017 6:12:12 PM Financial #: [id number]
[2017-09-26] MEDS ORDERED: *morphine SULFATE 4 MG/ML PERIprocedure ONLY ONE ×2 (19:09→19:23)
[2017-09-26 20:27] VITALS: BP 139/93; PULSE 150; PULSE 97; RESP 16; O2SAT 98
[2017-09-26 21:00] VITALS: PULSE 96
[2017-09-26] MEDS ORDERED: PRAVASTATIN SOD 80 MG TAB PO SCH (21:00)
[2017-09-26] MEDS: AMIODARONE 200 MG TAB PO SCH (21:14)
[2017-09-26] MEDS: APIXABAN 5 MG TABLET PO SCH (21:14)
[2017-09-26 22:00] VITALS: PULSE 88
[2017-09-26 23:00] VITALS: PULSE 82
[2017-09-27] VITALS (12 sets, daily range): BP systolic 118–152; BP diastolic 68–90; PULSE 78–91; RESP 16; TEMP 97.8; O2SAT 93–95
[2017-09-27 06:10] LABS: INTERNATIONAL NORMALIZED RATIO 1.1 RATIO; PROTHROMBIN TIME - PATIENT 11.5 SEC (9.8-11.6)
[2017-09-27] MEDS ORDERED: AMIO200T PO ×2 (08:24)
--- NOTE | 2017-09-27 08:28 | PD.CARD.PN ---
Subjective Subjective Remarks Feels ok. Objective Medications Current Medications Medications (Trade) Dose Ordered Sig/Hang Route Start Time Stop Time Status Last Admin Sodium Chloride 500 ml @ 30 mls/hr [id number] IV 09/26/17 11:30 09/26/17 13:40 (Ativan) 1 mg CLINICAL TRANSFORMATION SPECIALIST SL 09/26/17 11:30 09/29/17 11:29 Lactated Ringer's 1,000 ml @ 30 mls/hr Q24H PRN IV 09/26/17 11:30 09/29/17 11:29 Sodium Chloride 500 ml @ 30 mls/hr [id number] PRN IV 09/26/17 11:30 09/29/17 11:29 (Lopressor) 25 mg CLINICAL TRANSFORMATION SPECIALIST PRN PO 09/26/17 11:30 09/29/17 11:29 (Betadine 5% Antisepsis Kit) 1 applic CLINICAL TRANSFORMATION SPECIALIST PRN EACH NARE 09/26/17 11:30 09/29/17 11:29 (Chlorhexidine 2% Cloth) 3 pack CLINICAL TRANSFORMATION SPECIALIST PRN TOPICAL 09/26/17 11:30 09/29/17 11:29 (Percocet 5-325 Mg) 1 tab Q4H PRN PO 09/26/17 17:30 (Percocet 5-325 Mg) 2 tab Q4H PRN PO 09/26/17 17:30 09/26/17 21:14 (Ativan Inj) 0.5 mg UNSCH PRN IV PUSH 09/26/17 17:30 09/27/17 17:29 09/27/17 02:06 (Atropine Inj) 0.5 mg UNSCH PRN IV PUSH 09/26/17 17:30 Sodium Chloride 250 ml @ 500 mls/hr ONCE PRN IV 09/26/17 17:30 09/27/17 17:29 (Zofran Inj) 4 mg Q4H PRN IV PUSH 09/26/17 17:30 (Xylocaine 1% Inj) 10 ml UNSCH PRN INFIL 09/26/17 17:30 09/27/17 17:29 (Norvasc) 5 mg DAILY PO 09/27/17 09:00 (Eliquis) 5 mg BID PO 09/26/17 21:00 09/26/17 21:14 (Mobic) 15 mg DAILY PO 09/27/17 09:00 (Protonix) 20 mg DAILY PO 09/27/17 09:00 (Pravachol) 80 mg HS PO 09/26/17 21:00 (Cordarone) 400 mg Q12HR PO 09/26/17 21:00 10/03/17 21:01 09/26/17 21:14 (Cordarone) 200 mg DAILY PO 10/04/17 09:00 Vital Signs / I&O Vital Signs Date Time Temp Pulse Resp B/P (MAP) Pulse Ox O2 Delivery O2 Flow Rate FiO2 09/26/17 22:36 16 09/26/17 19:45 98.2 88 15 139/81 (100) 95 Nasal Cannula 2 09/26/17 19:30 94 15 137/78 (97) 95 Nasal Cannula 2 09/26/17 19:15 100 14 136/78 (97) 96 Nasal Cannula 2 09/26/17 19:00 85 12 136/79 (98) 95 Nasal Cannula 2 09/26/17 18:45 84 14 126/76 (93) 95 Nasal Cannula 2 09/26/17 18:30 88 16 122/74 (90) 94 Nasal Cannula 2 09/26/17 18:25 98.2 92 15 127/81 (96) 93 Nasal Cannula 2 09/26/17 11:00 65 18 148/92 (110) 98 I/O 09/26/17 09/26/17 09/26/17 09/27/17 09/27/17 09/27/17 07:00 15:00 23:00 07:00 15:00 23:00 Intake Total 1700 ml Output Total 1360 ml 950 ml Balance 340 ml -950 ml Intake IV Total 200 ml Other 1500 ml Output Urine Total 1350 ml 950 ml Estimated Blood Loss 10 ml Physical Exam GENERAL: Well-nourished, well-developed patient. SKIN: Warm and dry.Groin sites soft with no bruising or bleeding. HEAD: Normocephalic. EYES: No scleral icterus. No injection or drainage. NECK: Supple, trachea midline. No JVD or lymphadenopathy. CARDIOVASCULAR: Regular rate and rhythm without murmurs, gallops, or rubs. RESPIRATORY: Breath sounds equal bilaterally. No accessory muscle use. GASTROINTESTINAL: Abdomen soft, non-tender, nondistended. EXTREMITIES: No cyanosis, or edema. NEUROLOGICAL: Awake, alert, and oriented x 3. Non-focal. Laboratory Laboratory Tests Test 09/26/17 11:20 09/27/17 05:45 White Blood Count 7.6 TH/MM3 Red Blood Count 4.69 MIL/MM3 Hemoglobin 14.7 GM/DL Hematocrit 42.2 % Mean Corpuscular Volume 89.8 FL Mean Corpuscular Hemoglobin 31.4 PG Mean Corpuscular Hemoglobin Concent 35.0 % Red Cell Distribution Width 12.9 % Platelet Count 294 TH/MM3 Mean Platelet Volume 8.7 FL Neutrophils (%) (Auto) 60.8 % Lymphocytes (%) (Auto) 20.3 % Monocytes (%) (Auto) 16.1 % Eosinophils (%) (Auto) 2.2 % Basophils (%) (Auto) 0.6 % Neutrophils # (Auto) 4.6 TH/MM3 Lymphocytes # (Auto) 1.5 TH/MM3 Monocytes # (Auto) 1.2 TH/MM3 Eosinophils # (Auto) 0.2 TH/MM3 Basophils # (Auto) 0.0 TH/MM3 CBC Comment DIFF FINAL Differential Comment Prothrombin Time 10.8 SEC 11.5 SEC Prothromb Time International Ratio 1.1 RATIO 1.1 RATIO Activated Partial Thromboplast Time 27.1 SEC 26.7 SEC Blood Urea Nitrogen 17 MG/DL Creatinine 1.09 MG/DL Random Glucose 108 MG/DL Calcium Level 9.1 MG/DL Sodium Level 139 MEQ/L Potassium Level 3.7 MEQ/L Chloride Level 103 MEQ/L Carbon Dioxide Level 29.8 MEQ/L Anion Gap 6 MEQ/L Estimat Glomerular Filtration Rate 66 ML/MIN Assessment and Plan Problem List: (1) Atrial fibrillation ICD Codes: I48.91 - Unspecified atrial fibrillation Plan: NSR on tele. Continue [employer] (2) S/P ablation of atrial fibrillation ICD Codes: Z98.890 - Other specified postprocedural states; Z86.79 - Personal history of other diseases of the circulatory system Plan: F/U with Dr. Son in 3 weeks per my d/w him. Problem Qualifiers (1) Atrial fibrillation: Qualified Codes: I48.0 - Paroxysmal atrial fibrillation Cheryl Damico Sep 27, 2017 08:28
[2017-09-27] MEDS ORDERED: PANTOPRAZOLE SOD 20 MG DELAYED RELEASE TAB PO SCH (09:00)
[2017-09-27] MEDS ORDERED: amLODIPine BESYLATE 5 MG TAB PO SCH (09:00)
[2017-09-27] MEDS ORDERED: MELOXICAM 15 MG TAB PO SCH (09:00)
[2017-09-27] MEDS: APIXABAN 5 MG TABLET PO SCH (09:02)
[2017-09-27] MEDS: AMIODARONE 200 MG TAB PO SCH (09:02)
--- NOTE | 2017-09-27 11:37 | EKG ---
Date Performed: 09/26/2017 Time Performed: 18:57:11 PTAGE: 72 years EKG: Sinus rhythm POSSIBLE SEPTAL MYOCARDIAL INFARCTION , PROBABLY OLD BORDERLINE ECG PREVIOUS TRACING : 09/26/2017 11.51 Compared to prior tracing, sinus rhythm has replaced atria l fibrillation. DOCTOR: Justin Metcalf Interpretating Date/Time 09/27/2017 11:59:07
--- NOTE | 2017-09-27 12:29 | EKG ---
Date Performed: 09/26/2017 Time Performed: 11:51:06 PTAGE: 72 years EKG: Atrial fibrillation with slow ventricular response. Prolonged QT interval Leftward axis Inf erior T wave changes are nonspecific Abnormal ECG PREVIOUS TRACING : 08/18/2017 02.14 Since the prior tracing, there has been no significant mackay DOCTOR: Justin Metcalf Interpretating Date/Time 09/27/2017 12:28:26
[2017-10-04] MEDS ORDERED: AMIODARONE 200 MG TAB PO SCH (09:00)
== END 2017-09-27 13:15 | disposition home or self-care (01) ==
LOC: HDOC 10:53 → HDIC 10:53 → HCIS 20:19 → HDOC 09-27 13:15
PROVIDERS: ATTEND Internal Medicine Interventional Cardiology
DX: I48.0 Paroxysmal atrial fibrillation (principal); I13.10 Hypertensive heart and chronic kidney disease without heart failure, with stage 1 through stage 4 chronic kidney disease, or unspecified chronic kidney disease; N18.2 Chronic kidney disease, stage 2 (mild); R07.9 Chest pain, unspecified; E78.5 Hyperlipidemia, unspecified; R05 Cough; K21.9 Gastro-esophageal reflux disease without esophagitis; M71.9 Bursopathy, unspecified; Z79.01 Long term (current) use of anticoagulants
CPT/HCPCS: 00537; 80048; 85002; 85025; 85610; 85730; 86850; 86900; 86901; 92960; 93005; 93312; 93320; 93325; 93613; 93623; 93656; 93662; C1730; C1731; C1732; C1759; C1766; C2630; J1100; J1644; J1940; J1956; J2060; J2270; J2405; J2720; J3010; J7040